=== PATIENT | male | born 1955 | race Caucasian/White ===

== ENCOUNTER 2020-01-21 07:32 | Outpatient (CLI) | payer BC, SELFPAY ==
--- NOTE | ~2020-01-21 | US_ITS ---
EXAMINATION: US right upper quadrant DATE: 01/21/2020 08:06 INDICATION: Upper abdominal pain. TECHNIQUE: Multiple grayscale and Doppler ultrasound images of the abdomen were obtained. COMPARISON: None FINDINGS: The visualized portions of the head, body, and tail of the pancreas are normal. The liver i s normal without focal lesion. No liver surface nodularity. There is normal flow in main portal vein. The gallbladder is normal in size and contains gallstones. No gallbladder wall thickening or sonogra phic Smith sign. The common duct is normal and measures 3 mm. IMPRESSION: 1. Cholelithiasis. No evidence of acute cholecystitis. Reviewed, dictated and finalized at location A.
== END 2020-01-21 07:33 | disposition home or self-care (01) ==
PROVIDERS: Visit Provider Family Medicine
DX: R10.10 Upper abdominal pain, unspecified (principal); K80.20 Calculus of gallbladder without cholecystitis without obstruction
CPT/HCPCS: 76705

== ENCOUNTER 2020-01-24 16:17 | Emergency (ER) | payer BC, SELFPAY ==
[2020-01-24] VITALS (10 sets, daily range): BP systolic 106–153; BP diastolic 66–76; PULSE 111–118; RESP 20; TEMP 36.6–36.7; O2SAT 96–100
--- NOTE | ~2020-01-24 | CT_ITS ---
EXAMINATION: CT abdomen pelvis w con DATE: 01/24/2020 17:28 INDICATION: Right lower quadrant pain for 3 weeks TECHNIQUE: Computed tomography (CT) of the abdomen and pelvis was performed with 100 cc Omnipaque 350 intravenous contrast. The dose-length product was 539.05 mGy-cm. Automated exposure control and iter ative reconstruction technique were employed. COMPARISON: Ultrasound dated 01/21/2020 FINDINGS: Dependent atelectasis. Heart size normal. No significant pleural or pericardial effusion. There is free intraperitoneal air, suspicious for perforation. There is a concentric mass of the righ t colon at the hepatic flexure, suspicious for malignancy. Moderate fluid is noted in the more proxim al colon and small bowel, suspicious for partial obstruction. The appendix is dilated measuring 9.5 m m and contains appendicoliths. Minimal surrounding inflammation. Cannot exclude superimposed appendic itis. There are segments of mildly thickened small bowel, nonspecific. Small subcentimeter hypodensity left hepatic lobe, likely benign. The spleen, pancreas, adrenal gland s and right kidney are unremarkable. There are gallstones. There is nonobstructing left renal stones, largest measuring 3 mm. There is free fluid in the right paracolic gutter. No discrete abscess ident ified. There is a chronic L1 burst fracture with osteolytic defect of the T12 vertebra with adjacent hemangioma. Metastatic disease is not excluded. IMPRESSION: 1. Probable mass of the colon at the hepatic flexure causing partial obstruction, suspicious for colleen ocarcinoma. No free intraperitoneal air in the upper abdomen, suspicious for perforation, although si te of perforation not identified. 2: Mildly dilated appendix containing fluid without significant surrounding periappendiceal inflammat ion, also possible sequela of obstruction, although early appendicitis is not excluded. 3: Cholelithiasis. 4: Nonobstructing left nephrolithiasis. 5: Possible metastatic disease to T12. Chronic L1 burst fracture. 6: Multiple segments of mildly thickened small bowel which may represent enteritis or inflammatory sona wel disease. Reviewed, dictated and finalized at location A. IMPRESSION: 1. Probable mass of the colon at the hepatic flexure causing partial obstructio n, suspicious for adenocarcinoma. No free intraperitoneal air in the upper abdo men, suspicious for perforation, although site of perforation not identified. 2: Mildly dilated appendix containing fluid without significant surrounding per iappendiceal inflammation, also possible sequela of obstruction, although early appendicitis is not excluded. 3: Cholelithiasis. 4: Nonobstructing left nephrolithiasis. 5: Possible metastatic disease to T12. Chronic L1 burst fracture. 6: Multiple segments of mildly thickened small bowel which may represent enteri tis or inflammatory bowel disease.
--- NOTE | 2020-01-24 16:43 | ED.ABDPAIN ---
HPI - Abdominal Pain General Chief Complaint: Abdominal Pain <Rudy Reagan PA-C - Last Filed: 01/24/20 19:01> Stated Complaint: Abd pain <MAXIMUS Quiroz Last Filed: 01/24/20 19:01> Time Seen by Provider: 01/24/20 16:20 <Rudy Reagan PA-C - Last Filed: 01/24/20 19:01> Source: patient <MAXIMUS Quiroz Last Filed: 01/24/20 19:01> Mode of arrival: ambulatory <MAXIMUS Quiroz Last Filed: 01/24/20 19:01> Limitations: no limitations <Rudy Reagan PA-C - Last Filed: 01/24/20 19:> History of Present Illness HPI narrative: Patient is a 64-year-old male who presents noting that he has been having abdominal pain off and on now for several months in the last week became more persistent began to experience increasing pain over the last couple of days which in the last day has become more severe in nature localized to the right lower quadrant patient had an outpatient ultrasound on Friday and is results were called and told that he had possible gallbladder related issue patient did not eat today and notes that the pain has been intensified throughout the day worse with any activity or movement with associated nausea. Patient had had some emesis in the prior week. Patient has not taken anything for his symptoms <Rudy Reagan PA-C - Last Filed: 01/24/20 19:01> Related Data Home Medications: Home Medications Medication Instructions Recorded Confirmed No Home Medications 01/24/20 01/24/20 <Rudy Reagan PA-C - Last Filed: 01/24/20 19:01> Allergies/Adverse Reactions: Allergies Allergy/AdvReac Type Severity Reaction Status Date / Time No Known Allergies Allergy Mild Unverified 01/24/20 16:29 <Rudy Reagan PA-C - Last Filed: 01/24/20 19:01> Review of Systems Review of Systems: All systems reviewed & are unremarkable except as noted in HPI and below <Rudy Reagan PA-C - Last Filed: 01/24/20 19:01> [facility] Social History Social History: Social History Smoking status: Never smoker <Rudy Reagan PA-C - Last Filed: 01/24/20 19:01> Exam Narrative: Exam Narrative: GENERAL: Well-appearing, well-nourished, and in acute pain HEAD: Normocephalic, atraumatic. EYES: PERRLA and EOMI. ENT: Nares clear, no rhinorrhea or epistaxis. Mucous membranes moist. Oropharynx without tonsillar hypertrophy exudate or other lesions. CHEST: Clear to auscultation. No respiratory distress. No wheezes rales or rhonchi HEART: Regular rate and rhythm. No murmur heard. Normal peripheral pulses. ABDOMEN: Firm, tenderness throughout the abdomen worse in the right lower quadrant, nondistended EXTREMITIES: Normal range of motion. No edema. SKIN: Warm, dry, no rash. NEURO: No focal deficits. Alert and oriented x3. Cranial nerves II through XII grossly intact PSYCH: Normal mood and affect. <Rudy Reagan PA-C - Last Filed: 01/24/20 19:01> Course EMPLOYEE RELATIONS MANAGER/PA Physician Supervision Attestation for Yrn Reagan. Patient seen several times with Mrs. Dooley. Patient continues to have pain and understands the diagnosis of cancer with mets. He knows that he needs surgery and is going to [facility] ED for evaluation and treatment. His cannot go, because of the COVID-19. They are Worship and she works at the [employer]. They are prayerful and appropriately concerned. <Geena Sal MD - Last Filed: 01/24/20 19:14> Consultations Consultation #1: Case was discussed with Dr. Flynn surgeon who recommends that the patient be transferred Spoke with radiologist regarding the findings Spoke with [facility] who has agreed to accept the patient dr Costello <Rudy Reagan PA-C - Last Filed: 01/24/20 19:01> Vital Signs Vital signs: Vital Signs Temperature 98.0 F 01/24/20 16:22 Pulse Rate 118 H 01/24/20 16:22 Respiratory Rate 20 01/24/20 16:22 Blood Pressure 153/76 H
[2020-01-24] MEDS: ONDANSETRON INJ 4 MG/2 ML VIAL IV PUSH ×2 (16:52→19:19)
[2020-01-24] MEDS: FAMOTIDINE 20 MG/2 ML VIAL IV PUSH (16:52)
[2020-01-24] MEDS: MORPHINE SULFATE 4 MG/ML INJ IV PUSH (16:53)
[2020-01-24] MEDS: SODIUM CHLORIDE 0.9% IV 1,000 ML 999 ML IV CONT (16:54)
[2020-01-24 16:57] LABS: Basophils Percent Auto 0.2 % (0.2-1.2); Eosinophils Percent Auto 0.1 % (0-4.4); Hematocrit 35.7 % (42.0-52.0); Immature Granulocyte Absolute 0.08 K/mm3 (0.00-0.031); Immature Granulocyte Percent A 0.6 % (0-0.5); Lymphocytes Absolute Auto 1.55 K/mm3 (0.9-3.2); Lymphocytes Percent Auto 11.1 % (18.3-44.2); Mean Corpuscular HGB Conc 30.8 g/dl (32-36); Mean Corpuscular Hemoglobin 23.6 pg (26-34); Mean Corpuscular Volume 76.6 fl (80-100); Mean Platelet Volume 10.3 fl (7.4-10.4); Monocytes Absolute Auto 0.7 K/mm3 (0.1-0.6); Monocytes Percent Auto 4.8 % (2.6-8.5); Neutrophils Absolute Auto 11.7 K/mm3 (1.3-6.7); Neutrophils Percent Auto 83.2 % (45.5-73.1); Platelet Count Result 380 k/mm3 (150-375); Red Blood Count 4.66 M/mm3 (4.6-6.20)
[2020-01-24 17:07] LABS: Lactic Acid Reflex 1.3 mmol/L (0.7-2.1)
[2020-01-24 17:08] LABS: Alanine Aminotransferase 14 U/L (4-50); Albumin Level 4.5 g/dL (3.5-5.1); Alkaline Phosphatase 77 U/L (38-126); Aspartate Amino Transferase 19 U/L (17-59); Blood Urea Nitrogen 20 mg/dL (9-20); Calcium 9.5 mg/dL (8.4-10.2); Carbon Dioxide 24 mmol/L (22-30); Chloride 100 mmol/L (98-107); Estimated CRCL calculation 64 ml/min; Estimated Glomerular Filt Rate > 60; Glucose 121 mg/dL (75-110); Lipase 46 U/L (23-300); Potassium 3.9 mmol/L (3.4-5.0); Sodium 135 mmol/L (137-145)
[2020-01-24 18:12] LABS: INR 1.2
[2020-01-24 18:13] LABS: Partial Thromboplastin Time 28.9 SECONDS (22.3-36.8)
[2020-01-24 18:56] LABS: Add Urine Microscopic? YES; Appearance Urine Clear (Clear); Bilirubin Urine Negative (Negative); Blood Urine Negative (Negative); Color Urine Straw (Yellow); Glucose Urine UA Negative (Negative); Ketones Urine Trace mg/dL (Negative); Leukocyte Esterase Ur Negative LEU/UL (Negative); Mucus Urine Rare /lpf; Nitrate Urine Negative (Negative); Protein Urine Negative (Negative); RBC Urine 0-2 /hpf (0-2); Urobilinogen Urine Negative mg/dL (<2.0); WBC Urine 0-3 /hpf
[2020-01-24 18:58] LABS: Specific Grav Ur 1.042 (1.001-1.035)
--- NOTE | 2020-01-24 18:59 | PC.NURSE ---
[facility] declined transfer [facility] declined transfer [facility] accepted transfer ETA 45min Trip # [id number]
[2020-01-24] MEDS: HYDROMORPHONE HCL 1 MG/ML INJ IV PUSH ×2 (19:19→20:53)
--- NOTE | 2020-01-24 20:16 | PC.NURSE ---
called [facility] to update ETA. ETA is 2100
--- NOTE | 2020-01-24 20:54 | PC.NURSE ---
[facility] here at 2049
--- NOTE | 2020-01-24 21:00 | PC.NURSE ---
[facility] here to transport patient to [facility] ER.
== END 2020-01-24 21:04 | disposition short-term general hospital (02) ==
PROVIDERS: Emergency Medicine Emergency Medical Services; Emergency Provider Emergency Medicine; PCP Family Medicine
DX: R19.00 Intra-abdominal and pelvic swelling, mass and lump, unspecified site (principal); N20.0 Calculus of kidney; R93.7 Abnormal findings on diagnostic imaging of other parts of musculoskeletal system; R93.5 Abnormal findings on diagnostic imaging of other abdominal regions, including retroperitoneum; R93.3 Abnormal findings on diagnostic imaging of other parts of digestive tract
CPT/HCPCS: 36415; 74177; 80053; 81001; 83605; 83690; 85025; 85610; 85730; 86850; 86900; 86901; 96361; 96365; 96375; 96376; 99285; J1170; J2270; J2405; J2543; J3010; J7030; Q9967

== ENCOUNTER 2021-07-28 23:04 | Emergency (ER) | payer MEDICARE, SELFPAY ==
--- NOTE | ~2021-07-28 | CT_ITS ---
EXAMINATION: CT abdomen pelvis w con DATE: 07/29/2021 02:14 INDICATION: Generalized abdominal pain. Diarrhea. History of colon cancer. TECHNIQUE: Computed tomography (CT) of the abdomen and pelvis was performed with 100 cc Omnipaque 350 intravenous contrast. Automated exposure control and iterative reconstruction technique were employe d. Exam dose: 682.95 mGy-cm total exam DLP. COMPARISON: 01/24/2020 CT abdomen pelvis 02/07/2020 right upper quadrant abdominal ultrasound FINDINGS: Stable small peripheral pleural-based density of the middle lobe since 01/24/2020, consistent with benign process. Minimal bilateral lower lobe dependent atelectasis. The lung bases are clear of infiltrate or consolidation. Normal heart size. No pericardial or pleural effusion. Approximately 1.3 cm right hepatic mass with irregular margins, and approximately 1.5 cm left hepatic irregular hypoattenuating mass, suspicious for hepatic metastatic deposits. Multiple gallstones. No gallbladder wall thickening or pericholecystic fluid or fat stranding. No thelma e duct or pancreatic duct dilatation. No pancreatic mass lesion or calcification is evident. There is splenomegaly, spleen measuring up to 15.7 cm vertical dimension. Normal morphology of the adrenal glands. Approximately 3.6 mm nonobstructing lower pole left renal calculus. No other urinary tract calculus o r hydroureteronephrosis. The urinary bladder wall is moderately diffusely thickened. There are prosta te calcifications in addition to mild prostate enlargement. Normal caliber of the abdominal aorta. There are shotty nonenlarged periaortic and aortocaval lymph n odes. There are fluid levels of the small bowel and colon, consistent with clinical presentation of diarrhe a. Status post right colectomy. No bowel obstruction or intraperitoneal free air is detected. Benign hemangiomas of T11 and to a greater extent T12 vertebral bodies. Prominent burst fracture deformity of L1. IMPRESSION: Status post right colectomy for colon adenocarcinoma Two probable hepatic metastases Cholelithiasis Reviewed, dictated and finalized at Location A. Reviewed, dictated and finalized at location A.
[2021-07-28 23:11] VITALS: BP 130/90; PULSE 88; RESP 14; TEMP 36.6; O2SAT 98
[2021-07-29] VITALS (7 sets, daily range): BP systolic 112–136; BP diastolic 70–82; PULSE 84–87; RESP 18; O2SAT 94–99
[2021-07-29 00:10] LABS: Basophils Percent Auto 0.1 % (0.2-1.2); Eosinophils Absolute Auto 0.1 K/mm3 (0-0.3); Eosinophils Percent Auto 1.1 % (0-4.4); Hematocrit 44.4 % (42.0-52.0); Hemoglobin 15.2 g/dL (14.0-18.0); Immature Granulocyte Absolute 0.03 K/mm3 (0.00-0.031); Immature Granulocyte Percent A 0.4 % (0-0.5); Immature Platelet Fraction Pct 2.7 % (0.9-11.2); Lymphocytes Absolute Auto 1.14 K/mm3 (0.9-3.2); Lymphocytes Percent Auto 14.6 % (18.3-44.2); Mean Corpuscular HGB Conc 34.2 g/dl (32-36); Mean Corpuscular Hemoglobin 31.1 pg (26-34); Mean Corpuscular Volume 90.8 fl (80-100); Mean Platelet Volume 9.9 fl (7.4-10.4); Monocytes Absolute Auto 0.4 K/mm3 (0.1-0.6); Monocytes Percent Auto 5.1 % (2.6-8.5); Neutrophils Absolute Auto 6.2 K/mm3 (1.3-6.7); Neutrophils Percent Auto 78.7 % (45.5-73.1); Platelet Count Result 127 k/mm3 (150-375); Red Blood Count 4.89 M/mm3 (4.6-6.20); Red Cell Distribution Width 12.3 % (11.5-14.5); White Blood Count 7.8 K/mm3 (4.5-10.0)
[2021-07-29 00:19] LABS: Alanine Aminotransferase 36 U/L (4-50); Albumin Level 4.6 g/dL (3.5-5.1); Alkaline Phosphatase 79 U/L (38-126); Anion Gap 10 mmol/L (8-16); Aspartate Amino Transferase 35 U/L (17-59); Bilirubin,Total 0.5 mg/dL (0.2-1.3); Blood Urea Nitrogen 18 mg/dL (9-20); Calcium 9.6 mg/dL (8.4-10.2); Carbon Dioxide 25 mmol/L (22-30); Chloride 103 mmol/L (98-107); Estimated CRCL calculation 58 ml/min; Estimated Glomerular Filt Rate > 60; Glucose 146 mg/dL (65-110); Lipase 177 U/L (23-300); Potassium 4.3 mmol/L (3.4-5.0); Sodium 138 mmol/L (137-145)
[2021-07-29 00:23] LABS: Add Urine Microscopic? NO; Appearance Urine Clear (Clear); Bilirubin Urine Negative (Negative); Blood Urine Negative (Negative); Color Urine Yellow (Yellow); Glucose Urine UA Negative (Negative); Ketones Urine Negative (Negative); Leukocyte Esterase Ur Negative LEU/UL (Negative); Nitrate Urine Negative (Negative); Protein Urine Negative (Negative); Specific Grav Ur 1.021 (1.001-1.035); Urobilinogen Urine Negative mg/dL (<2.0)
[2021-07-29] MEDS: SODIUM CHLORIDE 0.9% IV 1,000 ML 999 ML IV CONT (01:12)
[2021-07-29] MEDS: ONDANSETRON INJ 4 MG/2 ML VIAL IV PUSH ×2 (01:13→04:11)
[2021-07-29] MEDS: MORPHINE SULFATE (*CRX) 4 MG/ML INJ IV PUSH (01:13)
--- NOTE | 2021-07-29 02:03 | ED.GENADULT ---
HPI - General Adult General Chief complaint: Abdominal Pain Stated complaint: abd pain Time Seen by Provider: 07/29/21 00:34 History of Present Illness HPI narrative: Patient is a 65-year-old gentleman who presents the emergency department with chief complaint of abdominal pain. The patient reports he has history of cancer and has had a bowel resection and is also had chemotherapy and immunotherapy. Patient states that he started having diarrhea in the last 24 hours has had multiple episodes of cramping and multiple watery stools. The patient states that he has not had a fever with this has not been on recent antibiotics the patient states he did talk to his oncologist who is at [facility]. Patient states that the cramping has somewhat improved since he has been resting here in the emergency department. Related Data Home Medications Medication Instructions Recorded Confirmed lisinopril 07/29/21 Allergies Allergy/AdvReac Type Severity Reaction Status Date / Time No Known Allergies Allergy Verified 07/29/21 02:36 Review of Systems Review of Systems: A 10 system review of systems was completed on the patient and is negative except for what is stated in the HPI. Nursing and ancillary documentation was reviewed. Exam Narrative: GENERAL: Well-appearing, well-nourished, and in no acute distress. HEAD: Normocephalic, atraumatic. EYES: PERRLA and EOMI. ENT: Nares clear, no rhinorrhea or epistaxis. Mucous membranes moist. NECK: Supple. CHEST: Clear to auscultation. No respiratory distress. HEART: Regular rate and rhythm. No murmur heard. Normal peripheral pulses. ABDOMEN: Soft, mild tenderness to palpation throughout the abdomen, nondistended, normal active bowel sounds. EXTREMITIES: Normal range of motion. No edema. SKIN: Warm, dry, no rash. NEURO: No focal deficits. Alert and oriented x3. PSYCH: Normal mood and affect. Course Vital Signs Vital signs: Vital Signs Temperature 36.6 C 07/28/21 23:11 Pulse Rate 88 07/28/21 23:11 Respiratory Rate 14 07/28/21 23:11 Blood Pressure 130/90 07/28/21 23:11 Pulse Oximetry 98 07/28/21 23:11 Temperature 36.6 C 07/28/21 23:11 Pulse Rate 87 07/29/21 02:33 Respiratory Rate 18 07/29/21 02:33 Blood Pressure 121/82 07/29/21 02:33 Pulse Oximetry 94 07/29/21 02:33 Medical Decision Making Vital Signs Vital Signs: Vital Signs Temperature 36.6 C 07/28/21 23:11 Pulse Rate 88 07/28/21 23:11 Respiratory Rate 14 07/28/21 23:11 Blood Pressure 130/90 07/28/21 23:11 Pulse Oximetry 98 07/28/21 23:11 Temperature 36.6 C 07/28/21 23:11 Pulse Rate 87 07/29/21 02:33 Respiratory Rate 18 07/29/21 02:33 Blood Pressure 121/82 07/29/21 02:33 Pulse Oximetry 94 07/29/21 02:33 Lab Data Result diagrams: 07/28/21 23:55 07/28/21 23:55 Labs: Lab Results 07/28/21 07/28/21 07/29/21 Range/Units 23:55 23:55 00:05 WBC 7.8 (4.5-10.0) K/mm3 RBC 4.89 (4.6-6.20) M/mm3 Hgb 15.2 (14.0-18.0) g/dL Hct 44.4 (42.0-52.0) % MCV 90.8 (80-100) fl MCH 31.1 (26-34) pg MCHC 34.2 (32-36) g/dl RDW 12.3 (11.5-14.5) % Plt Count 127 L (150-375) k/mm3 MPV 9.9 (7.4-10.4) fl Immature Gran % (Auto) 0.4 (0-0.5) % Neut % (Auto) 78.7 H (45.5-73.1) % Lymph % (Auto) 14.6 L (18.3-44.2) % [place] % (Auto) 5.1 (2.6-8.5) % Eos % (Auto) 1.1 (0-4.4) % Baso % (Auto) 0.1 L (0.2-1.2) % Lymph # (Auto) 1.14 (0.9-3.2) K/mm3 Tarrant # (Auto) 0.4 (0.1-0.6) K/mm3 Eos # (Auto) 0.1 (0-0.3) K/mm3 Baso # (Auto) 0.0 (0.0-0.1) K/mm3 Abs Immat Gran (auto) 0.03 (0.00-0.031) K/mm3 Absolute Neuts (auto) 6.2 (1.3-6.7) K/mm3 Absolute Nucleated RBC 0.0 (0.0-0.012) K/mm3 Nucleated RBC % 0.0 (0.0-0.2) % % Immature Plt Fraction 2.7 (0.9-11.2) % Sodium 138 (137-145) mmol/L Potassium 4.3 (3.4-5.0) mmol/L Chloride
--- NOTE | 2021-07-29 02:50 | PC.NURSE ---
Patient states he has had 3 liquid stools since he has been here, one while in the waiting room and two since being in a room.
--- NOTE | 2021-07-29 03:32 | PC.NURSE ---
Patient ambulated to the bathroom and back to his room with a steady gait. Patient states his nausea and pain are intermittent at this time. Patient states the nausea is worse at this time. Lights dimmed upon request, call light within reach.
[2021-07-29] MEDS: LOPERAMIDE HCL 2 MG CAPSULE PO (04:11)
[2021-07-29] MEDS: DICYCLOMINE HCL INJ 20 MG/2 ML VIAL IM (04:11)
== END 2021-07-29 05:23 | disposition home or self-care (01) ==
PROVIDERS: Emergency Provider Emergency Medicine; PCP Family Medicine
DX: R10.84 Generalized abdominal pain (principal); R19.7 Diarrhea, unspecified
CPT/HCPCS: 36415; 74177; 80053; 81003; 83690; 85025; 85055; 96361; 96372; 96374; 96375; 96376; 99284; A9270; J0500; J2270; J2405; J7030; Q9967

== ENCOUNTER 2022-02-09 15:32 | Inpatient (IN) | payer MEDICARE, SELFPAY ==
[2022-02-09] VITALS (36 sets, daily range): BP systolic 78–110; BP diastolic 57–78; PULSE 113–135; RESP 15–33; TEMP 36.7; O2SAT 89–97
--- NOTE | ~2022-02-09 | CT_ITS ---
EXAMINATION: CTA chest PE protocol DATE: 02/09/2022 18:35 INDICATION: CA, tachy, SOB . History of colon cancer. TECHNIQUE: Computed tomography angiography (CTA) of the chest was performed with 100 mL Omnipaque-350 intravenous contrast timed to evaluate the pulmonary arteries. Coronal maximum intensity projection 3D-reconstructions were created by the technologist. The dose-length product (DLP) was 687.75 mGy-cm. Automated exposure control and iterative reconstruction technique were employed. COMPARISON: X-ray chest, same date. CT abdomen and pelvis 07/29/2021. FINDINGS: Study quality: Adequate. Pulmonary arteries: Multiple small nonocclusive segmental pulmonary artery filling defects involving the bilateral lower lobes and right upper lobe. Thoracic aorta: Minimal atherosclerotic calcification. Lung parenchyma and airways: Multiple pulmonary nodules, the largest in the anterior right upper lobe measuring up to 10 mm. Bibasilar atelectasis/scar. Thoracic inlet, axillae and chest wall: Unremarkable. Mediastinum: Extensive mediastinal and hilar lymphadenopathy, including enlarged right internal mamma ry nodes. Heart and pericardium: Bowing of the interventricular septum. RV/LV ratio 1.2. Coronary artery calcifications: Moderate. Pleura: Moderate bilateral pleural effusions, larger on the right. Upper abdomen: Moderate volume ascites. Mesenteric edema. Upper abdominal lymphadenopathy. Cholelithi asis. Previously described liver masses are not well seen probably due to phase of contrast. Bones: Vertebral body compression fractures involving T10 and L1. The T10 vertebral body appears scle rotic. The L1 deformity appears stable. IMPRESSION: Multiple nonocclusive segmental pulmonary emboli with evidence of right heart strain. Pulmonary, stephen l, and osseous findings suspicious for progressive metastatic disease, including an acute versus business affairs manager eve pathologic appearing T10 vertebral body fracture. Moderate bilateral pleural effusions. Abdominal ascites. Results communicated to Dr. Adames by Dr. Tena telephonically at 6:54 PM on 02/09/2022. Reviewed, dictated and finalized at location K. IMPRESSION: Multiple nonocclusive segmental pulmonary emboli with evidence of right heart s train. Pulmonary, darwin, and osseous findings suspicious for progressive metast atic disease, including an acute versus chronic pathologic appearing T10 verteb ral body fracture. Moderate bilateral pleural effusions. Abdominal ascites. Results communicated to Dr. Adames by Dr. Tena telephonically at 6:54 PM on 02/09/2022.
--- NOTE | ~2022-02-09 | US_ITS ---
EXAMINATION: US venous doppler UE DATE: 02/11/2022 16:33 INDICATION: Pulmonary embolism TECHNIQUE: Grayscale images without and with compression and Doppler images of the bilateral upper ex tremity veins were obtained. COMPARISON: None. FINDINGS: The right internal jugular vein, subclavian vein, axillary vein, brachial vein, basilic vein, radial vein, and ulnar vein are patent. Right cephalic vein is not visualized. The left internal jugular vein, subclavian vein, axillary vein, brachial vein, basilic vein, radial v ein, and ulnar vein are patent. Left cephalic vein is not visualized. IMPRESSION: 1. Patent bilateral upper extremity veins. No evidence of venous thrombosis. Reviewed, dictated and finalized at location B.
--- NOTE | ~2022-02-09 | XR_ITS ---
EXAMINATION: XR abdomen/kub 1V INDICATION: Abdominal distention TECHNIQUE: Supine views of the abdomen were obtained on 2 radiographs. COMPARISON: CT, 07/29/2021 FINDINGS: No definitely dilated loops of bowel are identified. There is gas-filled stomach and large bowel in the left abdomen. Right upper quadrant calcifications likely reflect cholelithiasis. There a re minimal airspace opacities of the lung bases. IMPRESSION: 1. No definitely dilated loops of bowel. 2. Bibasilar airspace opacities, consistent with atelectasis versus pneumonia. Reviewed, dictated and finalized at location F.
--- NOTE | ~2022-02-09 | US_ITS ---
EXAMINATION: US venous doppler [facility] DATE: 02/11/2022 16:31 INDICATION: Pulmonary embolism TECHNIQUE: Grayscale ultrasound images without and with compression and Doppler ultrasound images of the bilateral lower extremity veins were obtained. COMPARISON: None. FINDINGS: The visualized portions of right common femoral vein, profunda (deep) femoral vein, femoral vein, pop liteal vein, posterior tibial veins, peroneal veins and greater saphenous vein outflow are patent. Sm all Elam's cyst measuring 2.1 x 1.0 x 0.9 cm at the right popliteal fossa. The visualized portions of left common femoral vein, profunda femoral vein, femoral vein, popliteal v ein, posterior tibial veins, peroneal veins, lesser saphenous vein and greater saphenous vein outflow are patent. IMPRESSION: 1. No deep venous thrombosis in either lower limb. Reviewed, dictated and finalized at location B.
--- NOTE | ~2022-02-09 | CT_ITS ---
EXAMINATION: CT abdomen pelvis w con DATE: 02/14/2022 09:10 INDICATION: Abdominal pain TECHNIQUE: Computed tomography (CT) of the abdomen and pelvis was performed with 100 mL Omnipaque-350 intravenous contrast. Automated exposure control and iterative reconstruction technique were employe d. The dose-length product was 576.09 mGy-cm. COMPARISON: 07/29/2021 FINDINGS: Moderate-sized left and moderate to large right posterior layering pleural effusions. There is partia l collapse of the bilateral lower lobes with additional mild dependent compressive atelectasis in the right middle lobe. 9 mm right middle lobe nodule with smooth margins. Calcified nodules in the right middle lobe and at the right hilum consistent with old granulomatous disease. Heart size is normal. Atherosclerotic coronary artery calcifications. Small pericardial effusion. Central venous catheter t ip at the superior cavoatrial junction. Large bilateral hilar and mediastinal lymph nodes. Multiple small calcified gallstones in the dependent aspect of the partially decompressed gallbladder . 3.4 cm cyst in segment 4A of the liver with smooth well-defined margins. There are couple additiona l more ill-defined hypoenhancing lesions in segment 4A and 6 of the liver. Mild periportal edema. Mul tiple splenic calcifications consistent with old granulomatous disease. Bilateral adrenal glands and right kidney are normal. Nonobstructing 3-4 mm stone at a lower pole calyx of the right kidney. There is extensive bulky lymphadenopathy throughout the bowel mesentery which extends cephalad along the root of the mesentery into the upper abdomen with multiple additional enlarged lymph nodes in the periportal, portacaval, gastrohepatic and paraesophageal regions of the lower thorax. These surround the otherwise normal appearing pancreas. Postoperative change of prior right hemicolectomy with ileocolic anastomosis in the region of the pro ximal transverse colon. No dilated bowel to suggest obstruction. There is mesenteric edema along with moderate amount of ascites throughout the abdomen and pelvis. No abscess or free intraperitoneal gas . Bladder is normal. There is additional mild lymphadenopathy along the right external and internal i liac chain. Chronic L1 compression fracture. There is an additional subacute to chronic appearing T10 compression fracture with 40% central vertebral body height loss which is new since the prior study. Could not exclude a pathologic fracture with possible underlying lytic lesion although no other susp icious lytic or blastic bone lesions are identified. There are hemangiomas in the intervening T11 and T12 vertebral bodies. Diffuse body wall edema. IMPRESSION: 1. Extensive lymphadenopathy in the chest, abdomen and pelvis suspicious for either metastatic diseas e or lymphoma. Would consider CT-guided percutaneous biopsy of the retroperitoneal lymph nodes for pa thologic correlation. 2. A couple persistent ill-defined hypoenhancing hepatic lesions suspicious for metastatic disease. 3. Anasarca with body wall edema, moderate amount of ascites, moderate left and moderate to large rig ht pleural effusions and small pericardial effusion. 4. Cholelithiasis. 5. Nonobstructing 3-4 mm left renal stone. 6. Subacute to chronic appearing T10 compression fracture, new since 07/29/2021 and potentially patho logic. 7. Status post right hemicolectomy for reported colonic adenocarcinoma. Reviewed, dictated and finalized at location B. IMPRESSION: 1. Extensive lymphadenopathy in the chest, abdomen and pelvis suspicious for ei ther metastatic disease or lymphoma. Would consider CT-guided percutaneous biop sy of the retroperitoneal lymph nodes for pathologic correlation. 2. A couple persistent ill-def
--- NOTE | ~2022-02-09 | XR_ITS ---
EXAMINATION: XR chest 2V Exam Date/Time: 02/09/2022 15:55 CDT CLINICAL HISTORY: DYSPNEA Comparison: None available. RESULT: Lines, tubes, and devices: Right chest port, terminating in the right atrium. Lungs and pleura: Diffuse reticular pattern. Fluid in the fissures. Linear scar/atelectasis in the r ight base Cardiomediastinal silhouette: Unremarkable cardiomediastinal silhouette. Other: No acute osseous or upper abdominal finding. IMPRESSION: Chronic findings may reflect mild interstitial edema. Reviewed, dictated and finalized at location K.
--- NOTE | 2022-02-09 15:34 | ECG_ITS ---
Measurements Intervals [place] Rate: 125 P: 34 MN: 113 QRS: 70 QRSD: 102 T: 34 QT: 313 QTc: 452 Interpretive Statements SINUS TACHYCARDIA WITH SHORT MN INTERVAL NONSPECIFIC T-WAVE ABNORMALITY ABNORMAL ECG NO PREVIOUS ECG AVAILABLE FOR COMPARISON Electronically Signed On 02-10-2022 7:59:46 CDT by Mata Lucero M.D.
[2022-02-09 15:55] LABS: Basophils Percent Auto 0.2 % (0.2-1.2); Eosinophils Absolute Auto 0.1 K/mm3 (0-0.3); Eosinophils Percent Auto 2.5 % (0-4.4); Hematocrit 35.8 % (42.0-52.0); Hemoglobin 12.1 g/dL (14.0-18.0); Immature Granulocyte Absolute 0.02 K/mm3 (0.00-0.031); Immature Granulocyte Percent A 0.4 % (0-0.5); Lymphocytes Absolute Auto 0.92 K/mm3 (0.9-3.2); Lymphocytes Percent Auto 17.9 % (18.3-44.2); Mean Corpuscular HGB Conc 33.8 g/dl (32-36); Mean Corpuscular Hemoglobin 29.3 pg (26-34); Mean Corpuscular Volume 86.7 fl (80-100); Mean Platelet Volume 9.8 fl (7.4-10.4); Monocytes Absolute Auto 0.5 K/mm3 (0.1-0.6); Monocytes Percent Auto 9.6 % (2.6-8.5); Neutrophils Absolute Auto 3.6 K/mm3 (1.3-6.7); Neutrophils Percent Auto 69.4 % (45.5-73.1); Platelet Count Result 298 k/mm3 (150-375); Red Blood Count 4.13 M/mm3 (4.6-6.20); Red Cell Distribution Width 15.4 % (11.5-14.5); White Blood Count 5.1 K/mm3 (4.5-10.0)
[2022-02-09 16:05] LABS: Alanine Aminotransferase 51 U/L (4-50); Albumin Level 2.9 g/dL (3.5-5.1); Alkaline Phosphatase 886 U/L (38-126); Anion Gap 7 mmol/L (8-16); Aspartate Amino Transferase 93 U/L (17-59); Bilirubin,Total 1.3 mg/dL (0.2-1.3); Blood Urea Nitrogen 28 mg/dL (9-20); Calcium 8.1 mg/dL (8.4-10.2); Carbon Dioxide 24 mmol/L (22-30); Chloride 96 mmol/L (98-107); Estimated CRCL calculation 50 ml/min; Estimated Glomerular Filt Rate > 60; Glucose 122 mg/dL (65-110); Potassium 4.2 mmol/L (3.4-5.0); Sodium 127 mmol/L (137-145)
[2022-02-09 16:08] LABS: INR 1.3; Prothrombin Time 16.1 Seconds (11.1-14.7)
[2022-02-09 16:09] LABS: Partial Thromboplastin Time 24.9 SECONDS (22.3-36.8)
[2022-02-09 16:13] LABS: NT Pro B Type Natriuretic Pept 177 pg/mL (5-100)
[2022-02-09 16:34] LABS: Troponin I 0.035 ng/mL (0.000-0.034)
--- NOTE | 2022-02-09 17:37 | ED.GENADULT ---
HPI - General Adult General Chief complaint: Shortness of Breath/Dyspnea <Danyel Adames MD - Last Filed: 02/10/22 13:20> Stated complaint: SOB/ SWOLLEN FEET/ <Danyel Adames MD - Last Filed: 02/10/22 13:20> Time Seen by Provider: 02/09/22 17:03 <Danyel Adames MD - Last Filed: 02/10/22 13:20> Source: patient, family and RN notes reviewed <Danyel Adames MD - Last Filed: 02/10/22 13:20> Limitations: no limitations <Danyel Adames MD - Last Filed: 02/10/22 13:20> History of Present Illness HPI narrative: 58-year-old male undergoing treatment for colon cancer since january 2020 presented to the emergency department for evaluation of acute for worsening shortness of breath and tachycardia. Patient is currently being treated for colon cancer at [facility]. Patient's last chemotherapy was on January 28. Due to patient's elevated alk phos he has not received any additional treatments. Patient reports he has had a worsening cough over the last few weeks but that over the last few days he has had acutely worsening shortness of breath. Patient first noticed that he had some tachycardia to the 120s this morning. Patient does have associated nausea. Patient denies any chest pain. Patient does report abdominal fullness. Patient does have lower extremity edema that is worsening. <Danyel Adames MD - Last Filed: 02/10/22 13:20> Related Data Home medications: Home Medications Medication Instructions Recorded Confirmed lisinopril 07/29/21 benzonatate mg PO 02/09/22 dexamethasone 02/09/22 famotidine 02/09/22 loperamide 02/09/22 lorazepam 02/09/22 meclizine mg 02/09/22 ondansetron HCl 02/09/22 prochlorperazine maleate 02/09/22 rosuvastatin mg 02/09/22 sennosides [senna] mg 02/09/22 <Danyel Adames MD - Last Filed: 02/10/22 13:20> Allergies/adverse reactions: Allergies Allergy/AdvReac Type Severity Reaction Status Date / Time No Known Allergies Allergy Verified 02/09/22 15:37 <Danyel Adames MD - Last Filed: 02/10/22 13:20> Review of Systems Review of Systems: CONSTITUTIONAL: Denies fever, chills, or sweats. EYES: Denies visual changes, redness, or discharge. ENT: Denies rhinorrhea, congestion, sore throat, or otalgia. CARDIOVASCULAR: See HPI RESPIRATORY: See HPI. GASTROINTESTINAL: Nausea GENITOURINARY: Denies dysuria or hematuria. SKIN: Denies rash or itching. MUSCULOSKELETAL: Denies back pain, joint pain, or myalgia. NEUROLOGIC: Denies headache, numbness, or weakness. <Danyel Adames MD - Last Filed: 02/10/22 13:20> [facility] Social History Social History: Social History (System 12/27/21 @ 13:17 by Kate Cota) Smoking status: Never smoker <Danyel Adames MD - Last Filed: 02/10/22 13:20> Exam Narrative: APPEARANCE: Well appearing, no pain, no distress, well-nourished. HEAD: normocephalic, atraumatic. EYES: PERRLA/EOMI, conjunctivae clear. NOSE: Normal no drainage NECK: Supple. No adenopathy, no masses. RESPIRATORY: Airway patent, respirations nonlabored. Clear to auscultation bilaterally. CARDIOVASCULAR: Tachycardia ABDOMINAL: Soft, nontender, normal bowel sounds, mildly distended MUSCULOSKELETAL: Moves all extremities. Lower extremity +3 edema. NEURO: Alert. Cranial nerves II through XII intact. Grossly intact SKIN: Warm, dry. Normal Color <Danyel Adames MD - Last Filed: 02/10/22 13:20> Course Course Emergency Course: Patient feels he is dehydrated, has not had intake of much fluids today and was hyponatremic at 127. Patient was started on 125 mL/h of normal saline to help with intravascular depletion. Patient was also placed on 2 L of nasal cannula. CT scan showed multiple pulmonary emboli, concerns for metastatic spread to his lungs. Some evidence of right heart strain even though there is not an overwhelming clot burden. Patient was started on heparin. Patient was updated on the results
[2022-02-09] MEDS: SODIUM CHLORIDE 0.9% IV 1,000 ML 999 ML IV CONT (18:47)
[2022-02-09] MEDS: HEPARIN SODIUM LOCK FLUSH 500 UNITS/5 ML VIAL (18:49)
--- NOTE | 2022-02-09 19:23 | PC.NURSE ---
Pharmacy called for Heparin drip
[2022-02-09 19:31] LABS: Basophils Percent Auto 0.2 % (0.2-1.2); Eosinophils Absolute Auto 0.1 K/mm3 (0-0.3); Eosinophils Percent Auto 1.2 % (0-4.4); Hematocrit 34.8 % (42.0-52.0); Hemoglobin 11.7 g/dL (14.0-18.0); Immature Granulocyte Absolute 0.03 K/mm3 (0.00-0.031); Immature Granulocyte Percent A 0.6 % (0-0.5); Lymphocytes Absolute Auto 0.71 K/mm3 (0.9-3.2); Lymphocytes Percent Auto 14.8 % (18.3-44.2); Mean Corpuscular HGB Conc 33.6 g/dl (32-36); Mean Corpuscular Volume 86.4 fl (80-100); Mean Platelet Volume 9.7 fl (7.4-10.4); Monocytes Absolute Auto 0.4 K/mm3 (0.1-0.6); Monocytes Percent Auto 8.9 % (2.6-8.5); Neutrophils Absolute Auto 3.6 K/mm3 (1.3-6.7); Neutrophils Percent Auto 74.3 % (45.5-73.1); Platelet Count Result 262 k/mm3 (150-375); Red Blood Count 4.03 M/mm3 (4.6-6.20); Red Cell Distribution Width 15.5 % (11.5-14.5); White Blood Count 4.8 K/mm3 (4.5-10.0)
[2022-02-09] MEDS: HEPARIN SOD/D5W 100 UNITS/ML 25,000 UNITS/250 ML BAG 11 UNITS IV CONT (19:32)
[2022-02-09] MEDS: HEPARIN SODIUM 5,000 UNITS/ML VIAL 5000 UNITS IV PUSH (19:36)
[2022-02-09 19:43] LABS: INR 1.4; Partial Thromboplastin Time 28.6 SECONDS (22.3-36.8); Prothrombin Time 16.4 Seconds (11.1-14.7)
[2022-02-09 21:06] LABS: SARS-CoV-2 RNA PCR Negative
[2022-02-10] VITALS (48 sets, daily range): BP systolic 89–113; BP diastolic 52–84; PULSE 108–123; RESP 16–33; TEMP 36.4–37; O2SAT 89–100; BMI 27.3
[2022-02-10] MEDS: SODIUM CHLORIDE 0.9% IV 1,000 ML 150 ML (01:27)
[2022-02-10 01:50] LABS: Partial Thromboplastin Time 65.1 SECONDS (22.3-36.8)
[2022-02-10] MEDS: HEPARIN SOD/D5W 100 UNITS/ML 25,000 UNITS/250 ML BAG 12 UNITS IV CONT (02:23)
[2022-02-10] MEDS: HEPARIN SODIUM 5,000 UNITS/ML VIAL 2500 UNITS IV PUSH ×2 (02:26→09:09)
--- NOTE | 2022-02-10 04:03 | PC.NURSE ---
pt provided a hospital bed due to no known time frame for a bed at [facility]. Pt resting more comfortable. Pt stood to use bedside commode and no lounging back in bed. Pts went home for sleep.
--- NOTE | 2022-02-10 04:54 | PC.NURSE ---
Spoke with Marcia from [facility] transfer center
[2022-02-10 05:18] LABS: Basophils Percent Auto 0.3 % (0.2-1.2); Eosinophils Absolute Auto 0.1 K/mm3 (0-0.3); Eosinophils Percent Auto 2.9 % (0-4.4); Hemoglobin 10.9 g/dL (14.0-18.0); Immature Granulocyte Absolute 0.01 K/mm3 (0.00-0.031); Immature Granulocyte Percent A 0.3 % (0-0.5); Lymphocytes Absolute Auto 0.63 K/mm3 (0.9-3.2); Lymphocytes Percent Auto 18.5 % (18.3-44.2); Mean Corpuscular Hemoglobin 28.9 pg (26-34); Mean Corpuscular Volume 87.5 fl (80-100); Mean Platelet Volume 9.7 fl (7.4-10.4); Monocytes Absolute Auto 0.4 K/mm3 (0.1-0.6); Monocytes Percent Auto 11.5 % (2.6-8.5); Neutrophils Absolute Auto 2.3 K/mm3 (1.3-6.7); Neutrophils Percent Auto 66.5 % (45.5-73.1); Platelet Count Result 224 k/mm3 (150-375); Red Blood Count 3.77 M/mm3 (4.6-6.20); Red Cell Distribution Width 15.5 % (11.5-14.5); White Blood Count 3.4 K/mm3 (4.5-10.0)
[2022-02-10] MEDS: ROSUVASTATIN 10 MG TABLET 20 MG PO (08:16)
[2022-02-10 09:03] LABS: Partial Thromboplastin Time 68.2 SECONDS (22.3-36.8)
--- NOTE | 2022-02-10 11:00 | PC.NURSE ---
bed status check at [facility] = no beds will keep us updated
--- NOTE | 2022-02-10 14:07 | PM.IMHP ---
H&P: HPI History of Present Illness Date/Time: Patient was placed observation status for expected length of stay less than 23 hours for management, will plan to re-evaluate tomorrow for improvement. 02/10/22 14:07 Chief Complaint: Edema and shortness of breath Narrative: Mr. Dooley is a 58-year-old gentleman who presented to the emergency room with complaints of swelling to bilateral lower extremities discharged yesterday and shortness of breath and cough that has been increasing over the last week. Patient states he has noticed abdominal swelling for the last 3 weeks and has not been eating or drinking very well. Patient states that he called his oncologist at [place] [facility] after vomiting yesterday and he was told to come the emergency room for further evaluation. Upon evaluation in emergency room patient was noted to have edema to bilateral lower extremities and was noted to be hypoxic on room air per emergency room provider and patient was placed on oxygen 2 L per nasal cannula. Patient then underwent CTA which showed multiple nonocclusive segmental pulmonary embolism with evidence of right heart strain. Pulmonary nodule and osseous finding suspicious for progressive metastatic disease including an acute versus chronic pathological appearing T10 vertebral body fracture. Moderate bilateral pleural effusions. Abdominal ascites. Patient was placed on a heparin drip and was to be transferred to [facility] where he receives all of his care for his colon cancer with metastasis, but unfortunately they do not have a bed at this time. Patient denies any chest discomfort. Patient states he just has had shortness of breath with activity and a cough. Patient denies any lightheadedness, dizziness, syncopal, or near syncopal episodes. Patient has a known history of colon cancer with metastasis. Patient has been following at [facility] and was Recently started on a drug trial, but he had elevation of his liver enzymes and the last dose of medication he had taken was on 01/28/2022. Review of Systems Review of Systems: A 12 point review of systems was completed patient all pertinent positive and negative per HPI the remainder are unremarkable. [facility] Past Medical History Medical History (Updated 02/10/22 @ 14:19 by Leida Zeng APRN) Colon cancer Fracture of L1 vertebra Surgical History Surgical History (Updated 02/10/22 @ 14:15 by Leida Zeng APRN) History of colectomy Port-A-Cath in place Social History Social History (Updated 02/10/22 @ 14:16 by Leida Zeng APRN) Smoking status: Never smoker Substance use: never Living arrangements: with family Meds Home Medications and Allergies Home Medications Medication Instructions Recorded Confirmed Type hyoscyamine sulfate [Levsin] 0.125 mg PO QID PRN #20 tablet 07/29/21 Rx lisinopril 07/29/21 History benzonatate mg PO 02/09/22 History dexamethasone 02/09/22 History famotidine 02/09/22 History loperamide 02/09/22 History lorazepam 02/09/22 History meclizine mg 02/09/22 History ondansetron HCl 02/09/22 History prochlorperazine maleate 02/09/22 History rosuvastatin mg 02/09/22 History sennosides [senna] mg 02/09/22 History Allergies Allergy/AdvReac Type Severity Reaction Status Date / Time No Known Allergies Allergy Verified 02/09/22 15:37 Vital Signs Vital Signs - 24 hr 02/09/22 15:34 02/09/22 17:36 02/09/22 19:09 Temperature 36.7 C Pulse Rate 127 H 126 H Respiratory Rate 24 H 26 H Blood Pressure 100/67 Pulse Oximetry 96 97 95 02/09/22 19:15 02/09/22 19:16 02/09/22 19:21 Temperature Pulse Rate 124 H 124 H 124 H Respiratory Rate 21 H 25 H 32 H Blood Pressure 92/71 L Pulse Oximetry 96 95 97 02/09/22 19:30 02/09/22 19:52 02/09/22 20:00 Temperature Pulse Rate 125 H 123 H Respiratory Rate 28 H 23 H Blood Pressure Pulse Oximetry 93 95 95 02/09/22 20:01 04
--- NOTE | 2022-02-10 14:58 | ADMGEN ---
This patient, Terrence Lagos, was admitted to IMU Room 202-01 AT 1456. Patient/family oriented to hospital policies and general routines including ID bracelet, bed and alarms, visiting hours, pain management, procedures, bathroom and other care routines, personal items, smoking policy, room service/diet, and visiting hours. Information on how to activate the Rapid Response Team has been discussed. Patient/Family are encouraged to report perceived risks to care and to ask questions if they do not understand what they are told or what they should do.
[2022-02-10] MEDS: HEPARIN SOD/D5W 100 UNITS/ML 25,000 UNITS/250 ML BAG 13 UNITS IV CONT (15:39)
[2022-02-10 15:45] LABS: Anion Gap 7 mmol/L (8-16); Blood Urea Nitrogen 33 mg/dL (9-20); Carbon Dioxide 21 mmol/L (22-30); Chloride 98 mmol/L (98-107); Estimated CRCL calculation 57 ml/min; Estimated Glomerular Filt Rate > 60; Glucose 128 mg/dL (65-110); Potassium 3.6 mmol/L (3.4-5.0); Sodium 126 mmol/L (137-145)
[2022-02-10 15:46] LABS: Alanine Aminotransferase 61 U/L (4-50); Albumin Level 2.7 g/dL (3.5-5.1); Alkaline Phosphatase 885 U/L (38-126); Aspartate Amino Transferase 100 U/L (17-59); Bilirubin,Total 1.1 mg/dL (0.2-1.3); Calcium 7.6 mg/dL (8.4-10.2)
[2022-02-10 15:49] LABS: Partial Thromboplastin Time 92.7 SECONDS (22.3-36.8)
[2022-02-10 15:57] LABS: Troponin I 0.027 ng/mL (0.000-0.034)
[2022-02-10] MEDS: PROCHLORPERAZINE EDISYLATE 10 MG/2 ML VIAL IV PUSH (17:00)
[2022-02-10 21:28] LABS: Partial Thromboplastin Time 73.4 SECONDS (22.3-36.8)
[2022-02-11] VITALS (18 sets, daily range): BP systolic 94–114; BP diastolic 52–74; PULSE 106–135; RESP 16–21; TEMP 35.8–36.6; O2SAT 94–99; BMI 24.2
--- NOTE | 2022-02-11 | ECHO_ITS ---
Patient Info Name: Terrence Lagos Age: 66 years : 1955 Gender: Male Ht: 69 in Wt: 184 lbs BSA: 2.03 m2 HR: 108 bpm BP: 99 / 52 mmHg Heart Rhythm: Sinus Rhythm Technical Quality: Fair Exam Date: 02/11/2022 7:46 AM Exam Location: [facility] Patient Status: Inpatient Admit Date: 02/11/2022 Staff Ordering Physician: Leida Zeng APRN Plastic Tile Layer: Haven Villagomez RDCS Attending Provider: Isaías Ashraf MD Referring Physician: Karri ALONSO; Exam Type: CA echo doppler color flow Study Info Indications - pe with heart steain Complete two-dimensional, color flow and Doppler transthoracic echocardiogram is performed with contrast to opacify the left ventricle and to improve the deliniation of the left ventricle endocardial borders. Contrast/Agitated Saline Contrast/Ag. Saline: Definity Amount: 2.00 ml Administered By: Haven Villagomez RDCS Existing IV Access: Yes IV Access Condition: patent with no signs of infiltration Summary 1. Normal left ventricular dimension with hyperdynamic systolic function. 2. No significant valvular disease. 3. Technically difficult exam with poor visualization of the right ventricle despite definity contrast injection. 4. Mitral annular calcium. Left Ventricle Left ventricular chamber dimension is normal. Left ventricular systolic function is hyperdynamic, estimated at >70%. The left ventricular diastolic function is grade I diastolic dysfunction. Right Ventricle Right ventricular chamber dimension is not well visualized. Left Atria Left atrial chamber dimension is normal. Right Atria Right atrial chamber dimension is not well visualized. Aortic Valve The aortic valve is normal. Pulmonic Valve The pulmonic valve is not well visualized. Mitral Valve The mitral valve has normal leaflets. There is no mitral valve regurgitation. Tricuspid Valve The tricuspid valve leaflets are not well visualized. Pericardium/Pleural The pericardium appears normal. Aorta The aortic root size at the sinus of Valsalva is normal. Left Ventricular Outflow Tract Name Value Normal LVOT 2D LVOT Diameter 2.0 cm LVOT Doppler LVOT Peak Gradient 8 mmHg LVOT Mean Gradient 4 mmHg LVOT VTI 20 cm LVOT VTI/AV VTI Ratio 0.9 LVOT Stroke Volume 61 ml LVOT CO 6.6 l/min LVOT CI 3.2 l/min/m2 Pulmonic Valve Name Value Normal RVOT Doppler RVOT Peak Gradient 3 mmHg PV Doppler PV Peak Gradient 9 mmHg Mitral Valve
[2022-02-11 04:50] LABS: Basophils Percent Auto 0.5 % (0.2-1.2); Hematocrit 33.2 % (42.0-52.0); Hemoglobin 10.9 g/dL (14.0-18.0); Immature Granulocyte Absolute 0.02 K/mm3 (0.00-0.031); Immature Granulocyte Percent A 0.5 % (0-0.5); Lymphocytes Absolute Auto 0.64 K/mm3 (0.9-3.2); Lymphocytes Percent Auto 16.5 % (18.3-44.2); Mean Corpuscular HGB Conc 32.8 g/dl (32-36); Mean Corpuscular Hemoglobin 29.1 pg (26-34); Mean Corpuscular Volume 88.5 fl (80-100); Mean Platelet Volume 9.8 fl (7.4-10.4); Monocytes Absolute Auto 0.5 K/mm3 (0.1-0.6); Monocytes Percent Auto 13.1 % (2.6-8.5); Neutrophils Absolute Auto 2.7 K/mm3 (1.3-6.7); Neutrophils Percent Auto 68.4 % (45.5-73.1); Platelet Count Result 270 k/mm3 (150-375); Red Blood Count 3.75 M/mm3 (4.6-6.20); Red Cell Distribution Width 15.8 % (11.5-14.5); White Blood Count 3.9 K/mm3 (4.5-10.0)
[2022-02-11 05:01] LABS: Alanine Aminotransferase 59 U/L (4-50); Albumin Level 2.5 g/dL (3.5-5.1); Alkaline Phosphatase 870 U/L (38-126); Anion Gap 5 mmol/L (8-16); Aspartate Amino Transferase 97 U/L (17-59); Bilirubin,Total 1.1 mg/dL (0.2-1.3); Blood Urea Nitrogen 37 mg/dL (9-20); Calcium 7.5 mg/dL (8.4-10.2); Carbon Dioxide 24 mmol/L (22-30); Chloride 95 mmol/L (98-107); Estimated CRCL calculation 57 ml/min; Estimated Glomerular Filt Rate > 60; Glucose 109 mg/dL (65-110); Magnesium 2.4 mg/dL (1.6-2.3); Potassium 3.8 mmol/L (3.4-5.0); Sodium 124 mmol/L (137-145)
[2022-02-11 05:02] LABS: Partial Thromboplastin Time 68.8 SECONDS (22.3-36.8)
[2022-02-11] MEDS: HEPARIN SODIUM 5,000 UNITS/ML VIAL 2500 UNITS IV PUSH ×2 (05:20→12:31)
[2022-02-11] MEDS: PERFLUTREN LIPID MICROSPHERES 1.5 ML VIAL DILUTED TO 10 ML TOTAL VOLUME IV PUSH (08:32)
--- NOTE | 2022-02-11 08:33 | IVDEFINITY ---
Prior to administration of IV Definity the patient was educated on the risks and benefits of the imaging enhancing agent including potential adverse side effects. The patient verbalized understanding. Allergies were verified. No exclusion criteria were identified and at least one of the following inclusion criteria were met: 1) physician request, 2) patient technically difficult to image (per the [place] [employer] guidelines of two or more segments not discernable within the apical view), or 3) questionable left ventricular function. ?
[2022-02-11] MEDS: HEPARIN SOD/D5W 100 UNITS/ML 25,000 UNITS/250 ML BAG 14 UNITS IV CONT (11:53)
[2022-02-11 12:21] LABS: Partial Thromboplastin Time 60.6 SECONDS (22.3-36.8)
--- NOTE | 2022-02-11 15:43 | PM.IMPN ---
Progress Note: A&P Assessment and Plan (1) Pulmonary embolism: Qualifiers: Acute cor pulmonale presence: unspecified Chronicity: acute Pulmonary embolism type: unspecified Qualified Code(s): I26.99 - Other pulmonary embolism without acute cor pulmonale Code(s): I26.99 - Other pulmonary embolism without acute cor pulmonale Status: Acute Assessment and Plan: Patient does have multiple pulmonary embolism with right ventricular heart strain. Will have echo Doppler performed in the morning. Patient is on a heparin drip at this point time. Patient will need oral anticoagulation, but this will most likely need to be discussed with patient's oncologist who is at [facility]. 02/11/2022 interval history: patient with history of colon cancer has been seen and followed by [facility] patient presented with shortness of breath is found to have extensive pulmonary emboli nonobstructing patient started on heparin drip and currently on room air, cardiac echo is pending, discussed with wood stock blank handler recommended to do upper and lower extremity venous Doppler to evaluate blood clot burden, patient will be seen by the pulmonology and further recommendation to follow, once we have the recommendation from the wood stock blank handler will contact patient oncologist and further recommendation to follow (2) Hyponatremia: Code(s): E87.1 - Hypo-osmolality and hyponatremia Status: Acute Assessment and Plan: Patient's sodium was 127 yesterday. Laboratories were not redrawn today so will have laboratories drawn to evaluate patient's sodium level. (3) Colon cancer: Code(s): C18.9 - Malignant neoplasm of colon, unspecified Status: Acute Assessment and Plan: Patient receives care at [facility] at [facility]. Patient states that he will call his oncologist tomorrow for any further recommendations regarding his treatments. Patient was supposed to follow-up tomorrow for CT scanning as well as to from a plan for further treatments. (4) Transaminitis: Code(s): R74.01 - Elevation of levels of liver transaminase levels Status: Acute Assessment and Plan: Patient states that his liver enzymes elevated when he was started on his trial medication and that is why he had to stop medication. Will defer to patient's oncologist to continue to follow liver enzymes. Subjective Date/time seen: 02/11/22 15:43 Chief Complaint: Edema and shortness of breath Narrative: Mr. Dooley is a 58-year-old gentleman who presented to the emergency room with complaints of swelling to bilateral lower extremities discharged yesterday and shortness of breath and cough that has been increasing over the last week. Patient states he has noticed abdominal swelling for the last 3 weeks and has not been eating or drinking very well. Patient states that he called his oncologist at [place] after vomiting yesterday and he was told to come the emergency room for further evaluation. Upon evaluation in emergency room patient was noted to have edema to bilateral lower extremities and was noted to be hypoxic on room air per emergency room provider and patient was placed on oxygen 2 L per nasal cannula. Patient then underwent CTA which showed multiple nonocclusive segmental pulmonary embolism with evidence of right heart strain. Pulmonary nodule and osseous finding suspicious for progressive metastatic disease including an acute versus chronic pathological appearing T10 vertebral body fracture. Moderate bilateral pleural effusions. Abdominal ascites. Patient was placed on a heparin drip and was to be transferred to [facility] where he receives all of his care for his colon cancer with metastasis, but unfortunately they do not have a bed at this time. Patient denies any chest discomfort. Patient states he just has had shortness of breath with activity and a cough. Patient denies any lightheadedness, d
--- NOTE | 2022-02-11 17:11 | PM.CNPUL ---
Assessment and Plan Assessment and plan (1) Pulmonary embolism: Qualifiers: Acute cor pulmonale presence: unspecified Chronicity: acute Pulmonary embolism type: unspecified Qualified Code(s): I26.99 - Other pulmonary embolism without acute cor pulmonale Code(s): I26.99 - Other pulmonary embolism without acute cor pulmonale Status: Acute Assessment and Plan: Patient with a history of metastatic colon cancer now presents with 2 month history of dry cough, 2-3 weeks bloating, shortness of breath and pedal edema and found to have multiple nonocclusive bilateral pulmonary emboli, bilateral pleural effusions right greater than left, multiple pulmonary nodules a greatest is 10 mm and ascites. At this time the patient is on IV heparin started 02/09 at 19:30 and has stable blood pressure, adequate oxygenation on room air, a BNP of 177, troponin initially 0.035 and a repeat 0.027, and echocardiogram with normal LV systolic function and grade 1 diastolic dysfunction. He does remain tachycardic at 110. No indication for thrombolysis at this point. At this time I agree with continuation of IV heparin and if he remains stable overnight I would transition him to a direct oral anticoagulant that his insurance will cover on 02/12 unless his oncologist prefers him to remain on IV heparin drip in anticipation of transfer to [facility] for additional workup that may include invasive procedures such as thoracentesis or paracentesis. discussed with Dr. Brown. Will follow with you. History of Present Illness History of Present Illness Consult date: 02/11/22 Requesting physician: Austin Brown MD Reason for consult: pulmonary embolism Chief complaint: Pulmonary Embolism Narrative: 02/11/2022: This is a new Pulmonary consult for pulmonary emboli 66-year-old man with a history of metastatic colon cancer followed at [facility] with dry cough for 2 months, 2-3 week feeling of having a bloated and swollen abdomen, 1-2 day pedal edema who called his oncologist who recommended he go to the emergency room on 423. Patient presented with shortness of breath, tachycardia and CT angiogram of the chest revealed multiple nonocclusive segmental pulmonary emboli with bowing of the interventricular septum, moderate right greater than left pleural effusion, moderate ascites, multiple pulmonary nodules the largest measuring 10 mm. Patient was started on IV heparin and a referral was made to [facility]. No beds were available and patient was admitted to the Hospital. 02/11/2022. The patient is sitting in a chair in no respiratory distress. Saturations are 97-99% on room air. Patient states that his cough has improved over the last 2 days and that his swelling and abdominal bloating is unchanged. Patient denies any fever, chills, rigors, hemoptysis or pleuritic chest pain. Patient had upper and lower extremity Dopplers earlier today and there is no evidence of DVT. There is a small right Elam cyst Patient had an echocardiogram today with a hyperdynamic left ventricular systolic function estimated EF greater than 70%, grade 1 diastolic dysfunction, left atrium is normal, right ventricle is not well visualized, right atrium is not well visualized tricuspid valve was not well visualized. the impression does not list a PASP but in the body of the report it states the PASP is 50. regarding patient's colon cancer he was diagnosed on 01/24/2020 in which he underwent an emergency surgery and he tells me his: Had burst. At the time of the resection he had 11 of 26 nodes that were positive. He then received 10 cycles of the chemotherapy. He received a 2nd 5 cycles of chemotherapy. He then received 6-7 cycles of immunotherapy throughout 2019 and 2020. In addition he also had thermal ablation in which they inserted a needle into his liver and heated the needle. This was performed at [facility] and his doctor left and he was referred to [facility]
[2022-02-11 19:49] LABS: Partial Thromboplastin Time 100.2 SECONDS (22.3-36.8)
[2022-02-11] MEDS: PROCHLORPERAZINE EDISYLATE 10 MG/2 ML VIAL IV PUSH (20:18)
[2022-02-11] MEDS: CENTRAL LINE FLUSH 10 ML IV PUSH (22:00)
[2022-02-12] VITALS (19 sets, daily range): BP systolic 94–109; BP diastolic 53–71; PULSE 109–117; RESP 16–20; TEMP 35.6–36.5; O2SAT 92–99
[2022-02-12 02:21] LABS: Partial Thromboplastin Time 109.7 SECONDS (22.3-36.8)
[2022-02-12] MEDS: HEPARIN SOD/D5W 100 UNITS/ML 25,000 UNITS/250 ML BAG 14 UNITS IV CONT (03:08)
[2022-02-12] MEDS: CENTRAL LINE FLUSH 10 ML IV PUSH ×3 (06:24→20:31)
--- NOTE | 2022-02-12 09:15 | PM.PNPUL ---
Progress Note: A&P Assessment and Plan (1) Pulmonary embolism: Qualifiers: Acute cor pulmonale presence: unspecified Chronicity: acute Pulmonary embolism type: unspecified Qualified Code(s): I26.99 - Other pulmonary embolism without acute cor pulmonale Code(s): I26.99 - Other pulmonary embolism without acute cor pulmonale Status: Acute Assessment and Plan: 02/11 Patient with a history of metastatic colon cancer now presents with 2 month history of dry cough, 2-3 weeks bloating, shortness of breath and pedal edema and found to have multiple nonocclusive bilateral pulmonary emboli, bilateral pleural effusions right greater than left, multiple pulmonary nodules a greatest is 10 mm and ascites. At this time the patient is on IV heparin started 02/09 at 19:30 and has stable blood pressure, adequate oxygenation on room air, a BNP of 177, troponin initially 0.035 and a repeat 0.027, and echocardiogram with normal LV systolic function and grade 1 diastolic dysfunction. He does remain tachycardic at 110. No indication for thrombolysis at this point. Upper and lower extremity Dopplers are negative for DVT. At this time I agree with continuation of IV heparin and if he remains stable overnight I would transition him to a direct oral anticoagulant that his insurance will cover on 02/12 unless his oncologist prefers him to remain on IV heparin drip in anticipation of transfer to [facility] for additional workup that may include invasive procedures such as thoracentesis or paracentesis. 02/12 Patient states he had a good night. He was able to rest. He remains on room air with saturations 97%. Denies any fevers, chills, pleuritic chest pain or hemoptysis. Patient states he has a dry cough sometimes when he lays down. Patient's heart rate remains elevated at 108 now. BP 100 systolic and states his usual is 110. He denies any dizziness. Patient has not been eating well, may be hypovolemic, would assess orthostatics. Would transition to DOAC that his insurance will cover after discussion with his oncologist. Discussed with Dr. Brown. Will sign off, call with questions. Subjective Date/time seen: 02/12/22 09:15 Interval history: 02/11/2022: This is a new Pulmonary consult for pulmonary emboli 66-year-old man with a history of metastatic colon cancer followed at [facility] with dry cough for 2 months, 2-3 week feeling of having a bloated and swollen abdomen, 1-2 day pedal edema who called his oncologist who recommended he go to the emergency room on 423. Patient presented with shortness of breath, tachycardia and CT angiogram of the chest revealed multiple nonocclusive segmental pulmonary emboli with bowing of the interventricular septum, moderate right greater than left pleural effusion, moderate ascites, multiple pulmonary nodules the largest measuring 10 mm. Patient was started on IV heparin and a referral was made to [facility] hospital. No beds were available and patient was admitted to the Hospital. 02/11/2022. The patient is sitting in a chair in no respiratory distress. Saturations are 97-99% on room air. Patient states that his cough has improved over the last 2 days and that his swelling and abdominal bloating is unchanged. Patient denies any fever, chills, rigors, hemoptysis or pleuritic chest pain. Patient had upper and lower extremity Dopplers earlier today and there is no evidence of DVT. There is a small right Elam cyst Patient had an echocardiogram today with a hyperdynamic left ventricular systolic function estimated EF greater than 70%, grade 1 diastolic dysfunction, left atrium is normal, right ventricle is not well visualized, right atrium is not well visualized tricuspid valve was not well visualized. the impression does not list a PASP but in the body of the report it states the PASP is 50. regarding patient's colon cancer he was diagnosed on 01/24/2020 in which he underwent an emergency surgery and he te
[2022-02-12 09:47] LABS: Partial Thromboplastin Time 64.1 SECONDS (22.3-36.8)
[2022-02-12] MEDS: HEPARIN SODIUM 5,000 UNITS/ML VIAL 2500 UNITS IV PUSH (09:55)
--- NOTE | 2022-02-12 12:45 | PCNFU ---
Nutrition Follow-Up Complete: Inadequate oral intake related to decreased appetite as evidenced by reported poor PO intake Goal:Pt to meet >50% of estimated nutritional needs. Pt is progressing towards goal Pt current nutrition is Regular, minced and moist level 5. Ensure Enlive with meals Nutrition recommendation: Continue with current plan of care. Last recorded weight is 74.5 kg - stable at this time. Bowel Motility:+02/12 Labs Reviewed:no new labs yet today Meds Noted: Skin:WNL Additional Notes: Pt reports tolerating diet consistency change well just still has little appetite still. Intake charted at 50% today. Pt is drinking the Ensure. Encouraged him to sip on them slowly between meals and try and focus on foods during meals. Will monitor labs, medication, wt, and reported intake every 3 days
--- NOTE | 2022-02-12 13:50 | P.TS_ITS ---
Transfer Discharge Sum: Prov Provider Date of admission: 02/11/22 09:55 Primary care physician: PHYSICIAN NOT ON STAFF Admitting clinician: Isaías Ashraf MD Consults: 02/11/22 14:17 Consult to Physician Routine Comment: left Dr. Dustin ambriz voicemail [phone] Consulting Provider: Mata Chan scallop cutter/MD group to consult: Dr.Walter director blood bank Reason for consultation: PE and nodule Has provider been notified: Yes Transfer Discharge Sum: Med Medications Active and Home Medications: Home Medications loperamide 2 mg PO Q8H PRN 02/09/22 [History Confirmed 02/10/22] ondansetron HCl 8 mg PO Q8H PRN 02/09/22 [History Confirmed 02/10/22] prochlorperazine maleate 10 mg PO Q6H 02/09/22 [History Confirmed 02/10/22] rosuvastatin 20 mg PO DAILY 02/09/22 [History Confirmed 02/10/22] Active Medications Heparin Sodium (Porcine) (Heparin Sodium 5,000 Units/Ml Vial) 5,000 units IV PUSH PRN PRN PRN Reason: aPTT less than 55 seconds Heparin Sodium (Porcine) (Heparin Sodium 5,000 Units/Ml Vial) 2,500 units IV PUSH PRN PRN PRN Reason: aPTT 55 - 70 seconds Last Admin: 02/12/22 09:55 Dose: 2,500 units Documented by: Heparin Sodium (Porcine) (Heparin Sodium Lock Flush 500 Units/5 Ml Vial) 500 units IV PUSH PRN PRN PRN Reason: see comments below Heparin Sodium/Dextrose (Heparin Sodium/D5w 100 Units/Ml) 25,000 units in 250 mls @ 15 mls/hr IV CONT .[id number]; Protocol Last Admin: 02/12/22 11:15 Dose: Not Given Documented by: Prochlorperazine Edisylate (Prochlorperazine Edisylate 10 Mg/2 Ml Vial) 10 mg IV PUSH Q6H PRN PRN Reason: Nausea And Vomiting Last Admin: 02/11/22 20:18 Dose: 10 mg Documented by: Sodium Chloride (Central Line Flush) 10 ml IV PUSH Q8HR [facility] Last Admin: 02/12/22 06:24 Dose: 10 ml Documented by: Sodium Chloride (Central Line Flush) 10 ml IV PUSH PRN PRN PRN Reason: before/after int. infusion Sodium Chloride (Central Line Flush) 20 ml IV PUSH PRN PRN PRN Reason: after blood draws Transfer Discharge Sum: Hosp Hospital Course Hospital course: Terrence Lagos is a 66 year old male Time Spent with Patient Time attestation: Total time spent providing and/or coordinating transfer services: Spoke with Dr. Perales, his Oncologist at [facility], patient has bad available and will be transferred DS: Data Data Completed and Pending Labs on day of discharge: Labs from last 24 hours 02/12/22 02/12/22 02/11/22 09:31 01:55 18:28 APTT 64.1 H 109.7 H 100.2 H Preliminary micro results at discharge 02/10/22 15:28 Blood Culture - Preliminary Blood 02/10/22 15:28 Blood Culture - Preliminary Blood
[2022-02-12] MEDS: PROCHLORPERAZINE EDISYLATE 10 MG/2 ML VIAL IV PUSH (14:08)
[2022-02-12 16:10] LABS: Partial Thromboplastin Time 84.5 SECONDS (22.3-36.8)
[2022-02-12] MEDS: HEPARIN SOD/D5W 100 UNITS/ML 25,000 UNITS/250 ML BAG 15 UNITS IV CONT (20:30)
[2022-02-13] VITALS (17 sets, daily range): BP systolic 97–105; BP diastolic 61–70; PULSE 106–116; RESP 16–24; TEMP 36.1–36.4; O2SAT 92–96
[2022-02-13] MEDS: CENTRAL LINE FLUSH 10 ML IV PUSH ×3 (05:08→20:25)
[2022-02-13 05:39] LABS: Partial Thromboplastin Time 104.4 SECONDS (22.3-36.8)
[2022-02-13 10:23] LABS: Hemoglobin 10.9 g/dL (14.0-18.0); Mean Corpuscular Hemoglobin 29.4 pg (26-34); Mean Corpuscular Volume 88.9 fl (80-100); Mean Platelet Volume 10.8 fl (7.4-10.4); Platelet Count Result 262 k/mm3 (150-375); Red Blood Count 3.71 M/mm3 (4.6-6.20); Red Cell Distribution Width 16.4 % (11.5-14.5); White Blood Count 3.1 K/mm3 (4.5-10.0)
[2022-02-13 11:01] LABS: Alanine Aminotransferase 60 U/L (4-50); Albumin Level 2.5 g/dL (3.5-5.1); Alkaline Phosphatase 732 U/L (38-126); Anion Gap 5 mmol/L (8-16); Aspartate Amino Transferase 86 U/L (17-59); Bilirubin,Total 1.1 mg/dL (0.2-1.3); Blood Urea Nitrogen 57 mg/dL (9-20); Calcium 7.6 mg/dL (8.4-10.2); Carbon Dioxide 24 mmol/L (22-30); Chloride 96 mmol/L (98-107); Estimated CRCL calculation 49 ml/min; Estimated Glomerular Filt Rate 55; Glucose 94 mg/dL (65-110); Potassium 3.5 mmol/L (3.4-5.0); Sodium 125 mmol/L (137-145)
[2022-02-13] MEDS: HEPARIN SOD/D5W 100 UNITS/ML 25,000 UNITS/250 ML BAG 15 UNITS IV CONT (13:19)
[2022-02-13] MEDS: POTASSIUM CHLORIDE 20 MEQ TABLET 40 MEQ PO (13:20)
[2022-02-13] MEDS: ONDANSETRON INJ 4 MG/2 ML VIAL IV PUSH ×2 (13:30→18:51)
--- NOTE | 2022-02-13 15:24 | PM.IMPN ---
Progress Note: A&P Assessment and Plan (1) Pulmonary embolism: Qualifiers: Acute cor pulmonale presence: unspecified Chronicity: acute Pulmonary embolism type: unspecified Qualified Code(s): I26.99 - Other pulmonary embolism without acute cor pulmonale Code(s): I26.99 - Other pulmonary embolism without acute cor pulmonale Status: Acute Assessment and Plan: Patient does have multiple pulmonary embolism with right ventricular heart strain. Will have echo Doppler performed in the morning. Patient is on a heparin drip at this point time. Patient will need oral anticoagulation, but this will most likely need to be discussed with patient's oncologist who is at [facility]. 02/11/2022 interval history: patient with history of colon cancer has been seen and followed by [facility] patient presented with shortness of breath is found to have extensive pulmonary emboli nonobstructing patient started on heparin drip and currently on room air, cardiac echo is pending, discussed with supervisor intelligence analyst recommended to do upper and lower extremity venous Doppler to evaluate blood clot burden, patient will be seen by the pulmonology and further recommendation to follow, once we have the recommendation from the supervisor intelligence analyst will contact patient oncologist and further recommendation to follow 02/12/2022 interval history: patient with history of colon cancer has been seen and followed by [facility] patient presented with shortness of breath is found to have extensive pulmonary emboli nonobstructing patient started on heparin drip and currently on room air, cardiac echo showed preserved LV function however right ventricle and atria a not visualized, discussed with supervisor intelligence analyst recommended to do upper and lower extremity venous Doppler to evaluate blood clot burden, both upper and lower extremity Dopplers are negative for DVT, patient will be seen by the pulmonology and further recommendation to follow, spoke with patient's oncologist at [facility] Dr. Martell and was told patient is a room available at the [facility] and will be transferred today however patient was not transferred. remains clinically stable. (2) Hyponatremia: Code(s): E87.1 - Hypo-osmolality and hyponatremia Status: Acute Assessment and Plan: Patient's sodium was 127 yesterday. Laboratories were not redrawn today so will have laboratories drawn to evaluate patient's sodium level. (3) Colon cancer: Code(s): C18.9 - Malignant neoplasm of colon, unspecified Status: Acute Assessment and Plan: Patient receives care at [facility]. Patient states that he will call his oncologist tomorrow for any further recommendations regarding his treatments. Patient was supposed to follow-up tomorrow for CT scanning as well as to from a plan for further treatments. (4) Transaminitis: Code(s): R74.01 - Elevation of levels of liver transaminase levels Status: Acute Assessment and Plan: Patient states that his liver enzymes elevated when he was started on his trial medication and that is why he had to stop medication. Will defer to patient's oncologist to continue to follow liver enzymes. Subjective Date/time seen: 02/12/22 15:24 02/12/2022 interval history: patient with history of colon cancer has been seen and followed by [facility] patient presented with shortness of breath is found to have extensive pulmonary emboli nonobstructing patient started on heparin drip and currently on room air, cardiac echo showed preserved LV function however right ventricle and atria a not visualized, discussed with supervisor intelligence analyst recommended to do upper and lower extremity venous Doppler to evaluate blood clot burden, both upper and lower extremity Dopplers are negative for DVT, patient will be seen by the pulmonology and further recommendation to foll
--- NOTE | 2022-02-13 15:33 | PM.TDS ---
Transfer Discharge Sum: Prov Provider Date of admission: 02/11/22 09:55 Primary care physician: PHYSICIAN NOT ON STAFF Admitting clinician: Isaías Ashraf MD Consults: 02/11/22 14:17 Consult to Physician Routine Comment: left Dr. Dustin ambriz voicemail [phone] Consulting Provider: Mata Chan call center dispatcher/MD group to consult: Dr.Walter cyber analyst Reason for consultation: PE and nodule Has provider been notified: Yes Transfer Discharge Sum: Med Medications Active and Home Medications: Home Medications loperamide 2 mg PO Q8H PRN 02/09/22 [History Confirmed 02/10/22] ondansetron HCl 8 mg PO Q8H PRN 02/09/22 [History Confirmed 02/10/22] prochlorperazine maleate 10 mg PO Q6H 02/09/22 [History Confirmed 02/10/22] rosuvastatin 20 mg PO DAILY 02/09/22 [History Confirmed 02/10/22] Active Medications Heparin Sodium (Porcine) (Heparin Sodium 5,000 Units/Ml Vial) 5,000 units IV PUSH PRN PRN PRN Reason: aPTT less than 55 seconds Heparin Sodium (Porcine) (Heparin Sodium 5,000 Units/Ml Vial) 2,500 units IV PUSH PRN PRN PRN Reason: aPTT 55 - 70 seconds Last Admin: 02/12/22 09:55 Dose: 2,500 units Documented by: Heparin Sodium (Porcine) (Heparin Sodium Lock Flush 500 Units/5 Ml Vial) 500 units IV PUSH PRN PRN PRN Reason: see comments below Heparin Sodium/Dextrose (Heparin Sodium/D5w 100 Units/Ml) 25,000 units in 250 mls @ 15 mls/hr IV CONT .[id number] [facility]; Protocol Last Admin: 02/13/22 13:19 Dose: 1,500 units/hr, 15 mls/hr Documented by: Ondansetron HCl (Ondansetron Inj 4 Mg/2 Ml Vial) 4 mg IV PUSH Q4H PRN PRN Reason: Nausea And Vomiting Last Admin: 02/13/22 13:30 Dose: 4 mg Documented by: Prochlorperazine Edisylate (Prochlorperazine Edisylate 10 Mg/2 Ml Vial) 10 mg IV PUSH Q6H PRN PRN Reason: Nausea And Vomiting Last Admin: 02/12/22 14:08 Dose: 10 mg Documented by: Sodium Chloride (Central Line Flush) 10 ml IV PUSH Q8HR DEON Last Admin: 02/13/22 13:21 Dose: 10 ml Documented by: Sodium Chloride (Central Line Flush) 10 ml IV PUSH PRN PRN PRN Reason: before/after int. infusion Sodium Chloride (Central Line Flush) 20 ml IV PUSH PRN PRN PRN Reason: after blood draws Transfer Discharge Sum: Hosp Hospital Course Hospital course: Terrence Lagos is a 66 year old male Time Spent with Patient Time attestation: Total time spent providing and/or coordinating transfer services: DS: Data Data Completed and Pending Labs on day of discharge: Labs from last 24 hours 02/13/22 02/13/22 02/13/22 04:25 04:25 04:25 WBC 3.1 L RBC 3.71 L Hgb 10.9 L Hct 33.0 L MCV 88.9 MCH 29.4 MCHC 33.0 RDW 16.4 H Plt Count 262 MPV 10.8 H APTT 104.4 H Sodium 125 L Potassium 3.5 Chloride 96 L Carbon Dioxide 24 Anion Gap 5 L BUN 57 H D Creatinine 1.30 Estim Creat Clear Calc 49 Estimated GFR 55 L Glucose 94 Calcium 7.6 L Total Bilirubin 1.1 AST 86 H ALT 60 H Alkaline Phosphatase 732 H Total Protein 5.0 L Albumin 2.5 L 02/12/22 02/12/22 21:47 15:53 WBC RBC Hgb Hct MCV MCH MCHC RDW Plt Count MPV APTT 90.0 H 84.5 H Sodium Potassium Chloride Carbon Dioxide Anion Gap BUN Creatinine Estim Creat Clear Calc Estimated GFR Glucose Calcium Total Bilirubin AST ALT Alkaline Phosphatase Total Protein Albumin Preliminary micro results at discharge 02/10/22 15:28 Blood Culture - Preliminary Blood 02/10/22 15:28 Blood Culture - Preliminary Blood
[2022-02-14] VITALS (16 sets, daily range): BP systolic 91–111; BP diastolic 63–71; PULSE 70–112; RESP 16–22; TEMP 36.2–36.4; O2SAT 92–96
[2022-02-14] MEDS: HEPARIN SOD/D5W 100 UNITS/ML 25,000 UNITS/250 ML BAG 15 UNITS IV CONT ×2 (04:01→20:17)
[2022-02-14] MEDS: CENTRAL LINE FLUSH 10 ML IV PUSH ×3 (04:02→20:18)
[2022-02-14 05:10] LABS: Hematocrit 32.2 % (42.0-52.0); Hemoglobin 10.8 g/dL (14.0-18.0); Mean Corpuscular HGB Conc 33.5 g/dl (32-36); Mean Corpuscular Hemoglobin 29.6 pg (26-34); Mean Corpuscular Volume 88.2 fl (80-100); Mean Platelet Volume 10.2 fl (7.4-10.4); Platelet Count Result 251 k/mm3 (150-375); Red Blood Count 3.65 M/mm3 (4.6-6.20); Red Cell Distribution Width 16.7 % (11.5-14.5); White Blood Count 3.4 K/mm3 (4.5-10.0)
[2022-02-14 05:22] LABS: Alanine Aminotransferase 76 U/L (4-50); Albumin Level 2.6 g/dL (3.5-5.1); Alkaline Phosphatase 870 U/L (38-126); Anion Gap 5 mmol/L (8-16); Aspartate Amino Transferase 108 U/L (17-59); Bilirubin,Total 1.6 mg/dL (0.2-1.3); Blood Urea Nitrogen 62 mg/dL (9-20); Calcium 7.5 mg/dL (8.4-10.2); Carbon Dioxide 26 mmol/L (22-30); Chloride 95 mmol/L (98-107); Estimated CRCL calculation 45 ml/min; Estimated Glomerular Filt Rate 50; Glucose 107 mg/dL (65-110); Potassium 3.6 mmol/L (3.4-5.0); Sodium 126 mmol/L (137-145)
--- NOTE | 2022-02-14 11:39 | PCNFU ---
Nutrition Follow-Up Complete: Inadequate oral intake related to decreased appetite and now clear liquid status as evidenced by poor PO intake and diet order Goal:Pt to meet >50% of estimated nutritional needs Pt is not progressing towards goal. Continue with current goal Pt current nutrition is downgraded today to Clear liquid status . Nutrition recommendation: Encourage intake of liquids and Ensure Clear Last recorded weight is 78 kg - increased 4kg Bowel Motility:+BM 02/14 Labs Reviewed: Hgb:10.8, HCT:32.2, ALB: 2.6, NA:126, BUN:62, CRE:1.4 Meds Noted: Skin:WNL Additional Notes: Pt appetite remains poor. Intake poor. Diet downgraded to clear liquids at this time from Level 5, Ensure Clear in place with trays which provides 240kcals, 8g PRO per bottle. Noted possible transfer to [place]. Will monitor diet order, intake, labs, wt. Follow up in 5 days.
[2022-02-14] MEDS: FUROSEMIDE INJ 40 MG/4 ML VIAL 20 MG IV PUSH (12:09)
--- NOTE | 2022-02-14 13:38 | PM.IMPN ---
Progress Note: A&P Assessment and Plan (1) Pulmonary embolism: Qualifiers: Acute cor pulmonale presence: unspecified Chronicity: acute Pulmonary embolism type: unspecified Qualified Code(s): I26.99 - Other pulmonary embolism without acute cor pulmonale Code(s): I26.99 - Other pulmonary embolism without acute cor pulmonale Status: Acute Assessment and Plan: Patient does have multiple pulmonary embolism with right ventricular heart strain. Will have echo Doppler performed in the morning. Patient is on a heparin drip at this point time. Patient will need oral anticoagulation, but this will most likely need to be discussed with patient's oncologist who is at [facility]. 02/11/2022 interval history: patient with history of colon cancer has been seen and followed by [facility] patient presented with shortness of breath is found to have extensive pulmonary emboli nonobstructing patient started on heparin drip and currently on room air, cardiac echo is pending, discussed with assembly line worker recommended to do upper and lower extremity venous Doppler to evaluate blood clot burden, patient will be seen by the pulmonology and further recommendation to follow, once we have the recommendation from the assembly line worker will contact patient oncologist and further recommendation to follow 02/12/2022 interval history: patient with history of colon cancer has been seen and followed by [facility] patient presented with shortness of breath is found to have extensive pulmonary emboli nonobstructing patient started on heparin drip and currently on room air, cardiac echo showed preserved LV function however right ventricle and atria a not visualized, discussed with assembly line worker recommended to do upper and lower extremity venous Doppler to evaluate blood clot burden, both upper and lower extremity Dopplers are negative for DVT, patient will be seen by the pulmonology and further recommendation to follow, spoke with patient's oncologist at [facility] Dr. Martell and was told patient is a room available at the [facility] and will be transferred today however patient was not transferred. remains clinically stable. 02/13/2022 interval history: patient with history of colon cancer has been seen and followed by [facility] patient presented with shortness of breath is found to have extensive pulmonary emboli nonobstructing patient started on heparin drip and currently on room air, cardiac echo showed preserved LV function however right ventricle and atria a not visualized, discussed with assembly line worker recommended to do upper and lower extremity venous Doppler to evaluate blood clot burden, both upper and lower extremity Dopplers are negative for DVT, patient was seen by the pulmonology, on 02/12 spoke with patient's oncologist at [facility] Dr. Martell and was told patient has a room available at the [facility] and will be transferred today however patient was not transferred. remains clinically stable. (2) Hyponatremia: Code(s): E87.1 - Hypo-osmolality and hyponatremia Status: Acute Assessment and Plan: Patient's sodium was 127 yesterday. Laboratories were not redrawn today so will have laboratories drawn to evaluate patient's sodium level. (3) Colon cancer: Code(s): C18.9 - Malignant neoplasm of colon, unspecified Status: Acute Assessment and Plan: Patient receives care at [facility] at [facility]. Patient states that he will call his oncologist tomorrow for any further recommendations regarding his treatments. Patient was supposed to follow-up tomorrow for CT scanning as well as to from a plan for further treatments. (4) Transaminitis: Code(s): R74.01 - Elevation of levels of liver transaminase levels Status: Acute Assessment and Plan: Patient states that his liver enzymes elevated w
--- NOTE | 2022-02-14 13:43 | PM.TDS ---
Transfer Discharge Sum: Prov Provider Date of admission: 02/11/22 09:55 Primary care physician: PHYSICIAN NOT ON STAFF Admitting clinician: Isaías Ashraf MD Consults: 02/11/22 14:17 Consult to Physician Routine Comment: left Dr. Dustin ambriz voicemail [phone] Consulting Provider: Mata Chan call out operator/MD group to consult: Dr.Walter motor checker Reason for consultation: PE and nodule Has provider been notified: Yes Transfer Discharge Sum: Med Medications Active and Home Medications: Home Medications loperamide 2 mg PO Q8H PRN 02/09/22 [History Confirmed 02/10/22] ondansetron HCl 8 mg PO Q8H PRN 02/09/22 [History Confirmed 02/10/22] prochlorperazine maleate 10 mg PO Q6H 02/09/22 [History Confirmed 02/10/22] rosuvastatin 20 mg PO DAILY 02/09/22 [History Confirmed 02/10/22] Active Medications Heparin Sodium (Porcine) (Heparin Sodium 5,000 Units/Ml Vial) 5,000 units IV PUSH PRN PRN PRN Reason: aPTT less than 55 seconds Heparin Sodium (Porcine) (Heparin Sodium 5,000 Units/Ml Vial) 2,500 units IV PUSH PRN PRN PRN Reason: aPTT 55 - 70 seconds Last Admin: 02/12/22 09:55 Dose: 2,500 units Documented by: Heparin Sodium (Porcine) (Heparin Sodium Lock Flush 500 Units/5 Ml Vial) 500 units IV PUSH PRN PRN PRN Reason: see comments below Heparin Sodium/Dextrose (Heparin Sodium/D5w 100 Units/Ml) 25,000 units in 250 mls @ 15 mls/hr IV CONT .[id number] [facility]; Protocol Last Admin: 02/14/22 04:01 Dose: 1,500 units/hr, 15 mls/hr Documented by: Ondansetron HCl (Ondansetron Inj 4 Mg/2 Ml Vial) 4 mg IV PUSH Q4H PRN PRN Reason: Nausea And Vomiting Last Admin: 02/13/22 18:51 Dose: 4 mg Documented by: Prochlorperazine Edisylate (Prochlorperazine Edisylate 10 Mg/2 Ml Vial) 10 mg IV PUSH Q6H PRN PRN Reason: Nausea And Vomiting Last Admin: 02/12/22 14:08 Dose: 10 mg Documented by: Sodium Chloride (Central Line Flush) 10 ml IV PUSH Q8HR DEON Last Admin: 02/14/22 04:02 Dose: 10 ml Documented by: Sodium Chloride (Central Line Flush) 10 ml IV PUSH PRN PRN PRN Reason: before/after int. infusion Sodium Chloride (Central Line Flush) 20 ml IV PUSH PRN PRN PRN Reason: after blood draws Transfer Discharge Sum: Hosp Hospital Course Hospital course: Terrence Lagos is a 66 year old male Time Spent with Patient Time attestation: Total time spent providing and/or coordinating transfer services: DS: Data Data Completed and Pending Labs on day of discharge: Labs from last 24 hours 02/14/22 02/14/22 02/14/22 04:26 04:26 04:26 WBC 3.4 L RBC 3.65 L Hgb 10.8 L Hct 32.2 L MCV 88.2 MCH 29.6 MCHC 33.5 RDW 16.7 H Plt Count 251 MPV 10.2 APTT 104.0 H Sodium 126 L Potassium 3.6 Chloride 95 L Carbon Dioxide 26 Anion Gap 5 L BUN 62 H Creatinine 1.40 H Estim Creat Clear Calc 45 Estimated GFR 50 L Glucose 107 Calcium 7.5 L Total Bilirubin 1.6 H AST 108 H ALT 76 H Alkaline Phosphatase 870 H Total Protein 5.0 L Albumin 2.6 L Preliminary micro results at discharge 02/10/22 15:28 Blood Culture - Preliminary Blood 02/10/22 15:28 Blood Culture - Preliminary Blood
[2022-02-14] MEDS: PANTOPRAZOLE 40 MG TABLET PO (14:39)
--- NOTE | 2022-02-14 14:48 | PCCCNOTE ---
On 02/14/22, the student, [Graciela Montiel], provided care and completed [facility] documentation on this patient. I have reviewed the student's documentation and agree with the findings.
[2022-02-15] VITALS (15 sets, daily range): BP systolic 97–115; BP diastolic 58–74; PULSE 103–117; RESP 16–28; TEMP 35.7–36.8; O2SAT 91–94
[2022-02-15 05:07] LABS: Hemoglobin 10.9 g/dL (14.0-18.0); Mean Corpuscular HGB Conc 34.1 g/dl (32-36); Mean Corpuscular Hemoglobin 29.1 pg (26-34); Mean Corpuscular Volume 85.6 fl (80-100); Mean Platelet Volume 10.1 fl (7.4-10.4); Platelet Count Result 249 k/mm3 (150-375); Red Blood Count 3.74 M/mm3 (4.6-6.20); Red Cell Distribution Width 16.8 % (11.5-14.5); White Blood Count 4.2 K/mm3 (4.5-10.0)
[2022-02-15 05:21] LABS: Alanine Aminotransferase 95 U/L (4-50); Albumin Level 2.5 g/dL (3.5-5.1); Alkaline Phosphatase 942 U/L (38-126); Anion Gap 5 mmol/L (8-16); Aspartate Amino Transferase 117 U/L (17-59); Bilirubin,Total 2.3 mg/dL (0.2-1.3); Blood Urea Nitrogen 56 mg/dL (9-20); Calcium 7.4 mg/dL (8.4-10.2); Carbon Dioxide 26 mmol/L (22-30); Chloride 94 mmol/L (98-107); Estimated CRCL calculation 49 ml/min; Estimated Glomerular Filt Rate 55; Glucose 117 mg/dL (65-110); Potassium 3.4 mmol/L (3.4-5.0); Sodium 125 mmol/L (137-145)
[2022-02-15 05:51] LABS: Partial Thromboplastin Time 98.1 SECONDS (22.3-36.8)
[2022-02-15] MEDS: CENTRAL LINE FLUSH 10 ML IV PUSH ×3 (06:05→20:48)
[2022-02-15] MEDS: PANTOPRAZOLE 40 MG TABLET PO (09:25)
[2022-02-15] MEDS: HYDROcodone/acetaminophen (*CRX) 10-325 MG TABLET 1 TAB PO (09:26)
--- NOTE | 2022-02-15 14:02 | PCCCNOTE ---
On 02/15/22, the student, [Mckenzie Montiel], provided care and completed [facility] documentation on this patient. I have reviewed the student's documentation and agree with the findings.
[2022-02-15] MEDS: HEPARIN SOD/D5W 100 UNITS/ML 25,000 UNITS/250 ML BAG 15 UNITS IV CONT (14:28)
--- NOTE | 2022-02-15 16:39 | PM.IMPN ---
Progress Note: A&P Assessment and Plan (1) Pulmonary embolism: Qualifiers: Acute cor pulmonale presence: unspecified Chronicity: acute Pulmonary embolism type: unspecified Qualified Code(s): I26.99 - Other pulmonary embolism without acute cor pulmonale Code(s): I26.99 - Other pulmonary embolism without acute cor pulmonale Status: Acute Assessment and Plan: Patient does have multiple pulmonary embolism with right ventricular heart strain. Will have echo Doppler performed in the morning. Patient is on a heparin drip at this point time. Patient will need oral anticoagulation, but this will most likely need to be discussed with patient's oncologist who is at [facility]. 02/11/2022 interval history: patient with history of colon cancer has been seen and followed by [facility] patient presented with shortness of breath is found to have extensive pulmonary emboli nonobstructing patient started on heparin drip and currently on room air, cardiac echo is pending, discussed with bakery pastry internship recommended to do upper and lower extremity venous Doppler to evaluate blood clot burden, patient will be seen by the pulmonology and further recommendation to follow, once we have the recommendation from the bakery pastry internship will contact patient oncologist and further recommendation to follow 02/12/2022 interval history: patient with history of colon cancer has been seen and followed by [facility] patient presented with shortness of breath is found to have extensive pulmonary emboli nonobstructing patient started on heparin drip and currently on room air, cardiac echo showed preserved LV function however right ventricle and atria a not visualized, discussed with bakery pastry internship recommended to do upper and lower extremity venous Doppler to evaluate blood clot burden, both upper and lower extremity Dopplers are negative for DVT, patient will be seen by the pulmonology and further recommendation to follow, spoke with patient's oncologist at [facility] Dr. Martell and was told patient is a room available at the [facility] and will be transferred today however patient was not transferred. remains clinically stable. 02/13/2022 interval history: patient with history of colon cancer has been seen and followed by [facility] patient presented with shortness of breath is found to have extensive pulmonary emboli nonobstructing patient started on heparin drip and currently on room air, cardiac echo showed preserved LV function however right ventricle and atria a not visualized, discussed with bakery pastry internship recommended to do upper and lower extremity venous Doppler to evaluate blood clot burden, both upper and lower extremity Dopplers are negative for DVT, patient was seen by the pulmonology, on 02/12 spoke with patient's oncologist at [facility] Dr. Martell and was told patient has a room available at the [facility] and will be transferred today however patient was not transferred. remains clinically stable. 02/14/2022 interval history: patient with history of colon cancer has been seen and followed by [facility] patient presented with shortness of breath is found to have extensive pulmonary emboli nonobstructing patient started on heparin drip and currently on room air, cardiac echo showed preserved LV function however right ventricle and atria a not visualized, discussed with bakery pastry internship recommended to do upper and lower extremity venous Doppler to evaluate blood clot burden, both upper and lower extremity Dopplers are negative for DVT, patient was seen by the pulmonology, on 02/12 spoke with patient's oncologist at [facility] Dr. Martell and was told patient has a room available at the [facility] and will be transferred today however patient was not transferred. remains clinically stable. awaiting transferred to [facility] oncology floor. 04
[2022-02-15] MEDS: LORazepam (*CRX) 0.5 MG TABLET PO (20:48)
[2022-02-15] MEDS: MELATONIN 5 MG TABLET PO (20:48)
[2022-02-16] VITALS: PULSE 104; PULSE 107; RESP 18; O2SAT 94
[2022-02-16 01:53] VITALS: PULSE 110
[2022-02-16 03:02] VITALS: PULSE 109; RESP 16; O2SAT 93
--- NOTE | 2022-02-16 12:27 | PM.TDS ---
Transfer Discharge Sum: Prov Provider Date of admission: 02/11/22 09:55 Primary care physician: PHYSICIAN NOT ON STAFF Admitting clinician: Isaías Ashraf MD Consults: 02/11/22 14:17 Consult to Physician Routine Comment: left Dr. Dustin ambriz voicemail [phone] Consulting Provider: Mata Chan outbound call center representative/MD group to consult: Dr.Walter card reader Reason for consultation: PE and nodule Has provider been notified: Yes DS: Admitting Diagnosis Discharge Date 02/16/22 Admitting Diagnosis Edema and shortness of breath DS: Discharge Diagnosis Discharge Diagnosis (1) Pulmonary embolism: Qualifiers: Acute cor pulmonale presence: unspecified Chronicity: acute Pulmonary embolism type: unspecified Qualified Code(s): I26.99 - Other pulmonary embolism without acute cor pulmonale Code(s): I26.99 - Other pulmonary embolism without acute cor pulmonale Status: Acute Assessment and Plan: Patient does have multiple pulmonary embolism with right ventricular heart strain. Will have echo Doppler performed in the morning. Patient is on a heparin drip at this point time. Patient will need oral anticoagulation, but this will most likely need to be discussed with patient's oncologist who is at [facility]. 02/11/2022 interval history: patient with history of colon cancer has been seen and followed by [facility] patient presented with shortness of breath is found to have extensive pulmonary emboli nonobstructing patient started on heparin drip and currently on room air, cardiac echo is pending, discussed with card reader recommended to do upper and lower extremity venous Doppler to evaluate blood clot burden, patient will be seen by the pulmonology and further recommendation to follow, once we have the recommendation from the card reader will contact patient oncologist and further recommendation to follow 02/12/2022 interval history: patient with history of colon cancer has been seen and followed by [facility] patient presented with shortness of breath is found to have extensive pulmonary emboli nonobstructing patient started on heparin drip and currently on room air, cardiac echo showed preserved LV function however right ventricle and atria a not visualized, discussed with card reader recommended to do upper and lower extremity venous Doppler to evaluate blood clot burden, both upper and lower extremity Dopplers are negative for DVT, patient will be seen by the pulmonology and further recommendation to follow, spoke with patient's oncologist at [facility] Dr. Martell and was told patient is a room available at the [facility] and will be transferred today however patient was not transferred. remains clinically stable. 02/13/2022 interval history: patient with history of colon cancer has been seen and followed by [facility] patient presented with shortness of breath is found to have extensive pulmonary emboli nonobstructing patient started on heparin drip and currently on room air, cardiac echo showed preserved LV function however right ventricle and atria a not visualized, discussed with card reader recommended to do upper and lower extremity venous Doppler to evaluate blood clot burden, both upper and lower extremity Dopplers are negative for DVT, patient was seen by the pulmonology, on 02/12 spoke with patient's oncologist at [facility] Dr. Martell and was told patient has a room available at the [facility] and will be transferred today however patient was not transferred. remains clinically stable. 02/14/2022 interval history: patient with history of colon cancer has been seen and followed by [facility] patient presented with shortness of breath is found to have extensive pulmonary emboli nonobstructing patient started on heparin drip and currently on room air, cardiac echo showed preserved LV fun
== END 2022-02-16 03:35 | disposition short-term general hospital (02) | DRG 176 ==
LOC: ANHED 02-10 12:46 → ANHIMU 02-10 13:53
PROVIDERS: Emergency Medicine; Internal Medicine; Nurse Practitioner Adult Health; Nurse Practitioner Family; Admitting Provider Internal Medicine; Emergency Provider Emergency Medicine; Visit Provider Family Medicine
DX: I26.99 Other pulmonary embolism without acute cor pulmonale (principal); E87.1 Hypo-osmolality and hyponatremia; C18.9 Malignant neoplasm of colon, unspecified; R18.8 Other ascites; C79.9 Secondary malignant neoplasm of unspecified site; Z20.822 Contact with and (suspected) exposure to COVID-19; R74.01 Elevation of levels of liver transaminase levels; R91.8 Other nonspecific abnormal finding of lung field; Z90.49 Acquired absence of other specified parts of digestive tract
CPT/HCPCS: 36415; 71046; 71275; 74018; 74177; 80053; 83735; 83880; 84484; 85025; 85027; 85610; 85730; 87040; 93005; 93306; 93970; 96361; 96365; 96366; 96375; 96376; 99285; A9270; C9803; G0378; J0131; J0780; J1642; J1644; J1940; J2405; J7030; Q9957; Q9967; U0003; U0005